=== PATIENT | male | born 1990 | race Caucasian/White ===

== ENCOUNTER 2021-12-26 18:27 | Outpatient (CLI) | payer MEDICAID, OTHER | END 2021-12-26 18:28 | disposition critical access hospital (66) | LOC: EMS 18:27 | DX: R56.9 Unspecified convulsions (principal) | CPT/HCPCS: A0425; A0429 ==

== ENCOUNTER 2021-12-26 18:53 | Emergency (ER) | payer MEDICAID, OTHER ==
--- NOTE | 2021-12-26 19:22 | ED Physician Documentation ---
PD HPI SEIZURE - Stated complaint Stated Complaint: SZ S/P DRUG USE - Chief complaint Chief Complaint: Neuro - History obtained from History obtained from: Patient - History of Present Illness Timing - onset: Other (just prior to arrival) Witnessed: Witnessed - Additional information Additional information: 31-year-old male with history of amphetamine and opiate drug abuse presents by EMS from private residence for suspected seizure-like activity. Patient was at a green party and "smoked some fentanyl". People on scene stated that immediately afterwards the patient appeared to have shaking activity and called 911. When EMS arrived the patient was awake and alert, initially reluctant to be transported because he would be stuck in [place]. Patient denied biting his tongue, urinating on himself, states that he felt completely normal and did not think anything abnormal happened. Patient did report some "heart issue" that he was supposed to follow-up with a specialist for in [place], however he never did. He states that his heart condition caused him to be taken off of methadone but he has no idea what this condition was. He was not able to tell me if this was an electrical problem, valve problem, and infection, structural problem, or anything else about his issue. He states that he feels fine and tells me that he does not want be given Narcan Review of Systems Ten Systems: 10 systems reviewed and negative Constitutional: denies: Fever, Chills, Myalgias Ears: denies: Loss of hearing, Ear pain, Drainage/discharge Cardiac: denies: Chest pain / pressure, Palpitations, Calf pain Respiratory: denies: Dyspnea, Cough, Wheezing Neurologic: reports: Seizure (per EMS). denies: Generalized weakness, Focal weakness PD PAST MEDICAL HISTORY - Past Medical History Past Medical History: Yes - Present Medications Home Medications: Ambulatory Orders Medication Instructions Recorded Confirmed Naloxone HCl Nasal [Narcan Nasal] 4 mg NS ONCE PRN #2 ea 12/26/21 - Allergies Allergies/Adverse Reactions: Allergies Allergy/AdvReac Type Severity Reaction Status Date / Time acetaminophen [From Vicodin] Allergy Unknown Verified 12/26/21 19:05 codeine Allergy Unknown Verified 12/26/21 19:05 hydrocodone [From Vicodin] Allergy Unknown Verified 12/26/21 19:05 morphine AdvReac Unknown Verified 12/26/21 19:05 PD ED PE NORMAL - Vitals Vital signs reviewed: Yes - General General: Alert and oriented X 3, No acute distress, Well developed/nourished - HEENT HEENT: Atraumatic, PERRL, EOMI, Ears normal, Moist mucous membranes - Neck Neck: Supple, no meningeal sign, No bony TTP, C-Spine cleared by NEXUS criteria - Cardiac Cardiac: RRR, No murmur, Strong equal pulses - Respiratory Respiratory: No respiratory distress, Clear bilaterally - Abdomen Abdomen: Soft, Non tender, Non distended - Back Back: No CVA TTP, No spinal TTP - Derm Derm: Normal color, Warm and dry, No rash - Extremities Extremities: No deformity, No tenderness to palpate, Normal ROM s pain - Neuro Neuro: Alert and oriented X 3, machine heel seat laster 2-12 intact, No motor deficit, No sensory deficit, Normal speech - Psych Psych: Normal mood, Normal affect Results - Vitals Vitals: Vital Signs - 24 hr 12/26/21 12/26/21 18:58 20:11 Temperature 37.2 C Heart Rate 92 87 Respiratory 10 L 14 Rate Blood Pressure 129/85 H 132/78 H O2 Saturation 98 97 Oxygen O2 Source Room air - EKG (time done) 1948 Rate: Rate (enter#) (89) Rhythm: NSR [place]: Normal Intervals: Normal [place] QRS: Normal Ischemia: ST elevation c/w repol Other comments: Other comments (QTc normal, QRS normal) - Labs Labs: Laboratory Tests 12/26/21 12/26/21 19:27 19:27 WBC 9.6 RBC 4.08 L Hgb 13.3 L Hct 39.4 L MCV 96.6 H MCH 32.6 H MCHC 33.8 RDW 12.8 Plt Count 292 MPV 9.1 Neut # (Auto) 5.7 Lymph # (Auto) 2.6 [place] # (Auto) 0.7 Eos # (Auto) 0.5 Baso # (Auto) 0.1 Absolute Nucleated RBC 0.00 Nucleated RBC % 0.0 Sodium 140 Potassium 4.3 Chloride 102 Carbon Dioxide 31 Anion Gap 7.0 BUN 26 H Creatinine 0.7 Estimated GFR (MDRD) 132 Glucose 106 H Calcium 9.1 Total Bilirubin 0.4 AST 33 ALT 34 Alkaline Phosphatase 69 Total Protein 6.9 Albumin 3.7 Globulin 3.2 Albumin/Globulin Ratio 1.2 PD MEDICAL DECISION MAKING - ED course ED course: Questionable seizure-like activity after smoking what the patient says was fentanyl. He denies any seizure activity occurred, he states he feels fine and did not notice anything abnormal for him. Patient is mildly intoxicated consistent with opiate use, but arouses easily to voice and answers all questions appropriately, vital signs stable. Since the patient has reported history of unspecified heart issue work-up was obtained, which was unremarkable. EKG showed no electrical abnormalities. CT negative for acute findings. Lab work unremarkable. Patient was counseled on the importance of illicit substance cessation and I highly advise that he follow-up with a top hat body maker as pr eviously recommended. Prescription for Narcan sent to pharmacy. Patient discharged in stable condition. Departure - Departure Disposition: Home, Self Care Clinical Impression: Seizure-like activity, Opiate abuse, episodic Condition: Stable Instructions: ED Drug Abuse Narcotic Sedative Rx Prescriptions: Naloxone HCl Nasal [Narcan Nasal] 4 mg NS ONCE PRN #2 ea PRN Reason: narcotic overdose Comments: You are seen today for possible seizure-like activity. Your work-up today was normal. There is no obvious cause of this activity found. It is possible that this is related to your drug use. I highly recommend that you cease all drug use and follow-up with the top hat body maker for what ever heart condition you were previously diagnosed with. You should follow-up with a neurologist to rule out s eizure disorder. Until that time you should avoid driving, operating heavy machinery, swimming unaccompanied, or doing any activity where sudden loss of consciousness could cause you or other people to be at risk. Your prescription was sent to [facility] in [place] Discharge Date/Time: 12/26/21 20:19
--- OUTSIDE RECORDS SUMMARY | 2021-12-26 19:29 | EXTERNAL MEDICAL SUMMARY RPT | Continuity of Care Document ---
:1990 Author Organization [facility] Address [address] [place] [address] Phone Allergies and Intolerances date description facility type (no date) cefazolin [facility] (unknown) (no date) codeine [facility] (unknown) (no date) hydrocodone [facility] (unknown) (no date) methamphetamine [facility] (unknown) (no date) morphine [facility] (unknown) (no date) shrimp [facility] (unknown) (no date) [facility] (unknown) Encounters No information. Functional Status No information. Immunizations No information. Medications No information. Problems No information. Procedures No information. Results/Labs test date author facility value unit interpret ation Result panel 1 (unknown) (no date) (unknown) (unknown) (no value) (units (un known) unknown) (unknown) (no date) (unknown) (unknown) 12/22/21 (units (unkn own) unknown) (unknown) (no date) (unknown) (unknown) [address]units ([address] n[address]) [address] unknown) (unknown) (no date) (unknown) (unknown) [id number] (units (unkn own) unknown) (unknown) (no date) (unknown) (unknown) Accession (units (unk nown) Number: unknown) [id number] (unknown) (no date) (unknown) (unknown) Age/Sex: 31 / (units (unknown) M Date of unknown) Service: (unknown) (no date) (unknown) (unknown) [place], [place] (units (unknown) [id number] unknown) (unknown) (no date) (unknown) (unknown) Approved by: (units ( unknown) olena Morales) Robert on 12/22/2021 at 13:15 (unknown) (no date) (unknown) (unknown) Bones and (units (unk nown) chest wall: No unknown) suspicious bony lesions. Overlying soft tissues (unknown) (no date) (unknown) (unknown) [facility] , CHEST 2 VIEW, 07/06/2010, 12:38. (unknown) (no date) (unknown) (unknown) : (units (unkn own) 1990 unknown) Acct:[id number] (unknown) (no date) (unknown) (unknown) Dictated by: (units ( unknown) Sissy Zhao unknownYi Jones on 12/22/2021 at 13:14 (unknown) (no date) (unknown) (unknown) FINDINGS: (units (unk nown) unknown) (unknown) (no date) (unknown) (unknown) IMPRESSION: No (units (unknown) acute process. unknown) (unknown) (no date) (unknown) (unknown) INDICATIONS: (units ( unknown) chest pain unknown) (unknown) (no date) (unknown) (unknown) [facility] (unknown) (no date) (unknown) (unknown) Loc: ED (units (unkn own) unknown) (unknown) (no date) (unknown) (unknown) Lungs and (units (unk nown) pleura: Lungs unknown) are clear. No pleural effusions or pneumothorax. (unknown) (no date) (unknown) (unknown) Mediastinum: (units ( unknown) Mediastinal unknown) contours appear normal. Heart size is normal. (unknown) (no date) (unknown) (unknown) Ordering (units (unkn own) Provider: unknown) Rosette Warner D.O. (unknown) (no date) (unknown) (unknown) PROCEDURE: XR (units (unknown) CHEST 1V unknown) (unknown) (no date) (unknown) (unknown) Patient: (units (unkn own) Carissa Murdock unknown) MR#: [id number] (unknown) (no date) (unknown) (unknown) Procedure: XR (units (unknown) chest 1V unknown) (unknown) (no date) (unknown) (unknown) Signed (units (unkn own) unknown) (unknown) (no date) (unknown) (unknown) Surgical (units (unkn own) changes and unknown) devices: None. (unknown) (no date) (unknown) (unknown) TECHNIQUE: One (units (unknown) view of the unknown) chest was acquired. (unknown) (no date) (unknown) (unknown) XRay Report (units (u nknown) unknown) (unknown) (no date) (unknown) (unknown) appear (units (unkn own) unknown) (unknown) (no date) (unknown) (unknown) unremarkable. (units (unknown) unknown) Result panel 2 (unknown) (no (unknown) (unknown) (no value) (units (unk nown) date) unknown) (unknown) (no (unknown) (unknown) (Flovent HFA) (units ( unknown) date) unknown) (unknown) (no (unknown) (unknown) 0.09 mg IH Q4H (units (unknown) date) Qty: 1 3RF unknown) (unknown) (no (unknown) (unknown) 12/22/21 10:59 (units (unknown) date) unknown) (unknown) (no (unknown) (unknown) 12/22/21 13:05 (units (unknown) date) unknown) (unknown) (no (unknown) (unknown) 12/22/21 (units (unkno wn) date) unknown) (unknown) (no (unknown) (unknown) 1 puff INH BIDRT (units (unknown) date) Qty: 1 3RF unknown) (unknown) (no (unknown) (unknown) 1 spray (units (unkno wn) date) Intranasal QDAY unknown) Qty: 1 3RF (unknown) (no (unknown) (unknown) 10:51 (units (unkno wn) date) unknown) (unknown) (no (unknown) (unknown) 1164 (units (unkno wn) date) unknown) (unknown) (no (unknown) (unknown) 40 mg PO QDAY (units ( unknown) date) Qty: 60 1RF unknown) (unknown) (no (unknown) (unknown) Age/Sex: 31 / M (units (unknown) date) unknown) (unknown) (no (unknown) (unknown) Allergies (units (unkn own) date) unknown) (unknown) (no (unknown) (unknown) Allergy/AdvReac (units (unknown) date) Type Severity unknown) Reaction Status Date / Time (unknown) (no (unknown) (unknown) Blood Pressure (units (unknown) date) 118/56 L 12/22/21 unknown) 10:51 (unknown) (no (unknown) (unknown) Blood Pressure (units (unknown) date) 118/56 L unknown) (unknown) (no (unknown) (unknown) Chief Complaint: (units (unknown) date) Chest Pain unknown) (unknown) (no (unknown) (unknown) Complete Blood (units (unknown) date) Count AUTO DIFF unknown) Stat (unknown) (no (unknown) (unknown) Comprehensive (units ( unknown) date) Metabolic Panel unknown) Stat (unknown) (no (unknown) (unknown) Consult to STEM PROCESSING MACHINE OPERATOR - (units (unknown) date) Catalogue Maker unknown) Stat (unknown) (no (unknown) (unknown) Course (units (unkno wn) date) unknown) (unknown) (no (unknown) (unknown) : 1990 (units (unknown) date) Acct:[id number] unknown) (unknown) (no (unknown) (unknown) Date of Service: (units (unknown) date) 12/22/21 unknown) (unknown) (no (unknown) (unknown) Departure (units (unkn own) date) unknown) (unknown) (no (unknown) (unknown) Discharge Plan (units (unknown) date) unknown) (unknown) (no (unknown) (unknown) Discontinued (units (u nknown) date) Medications unknown) (unknown) (no (unknown) (unknown) Documented By: (units (unknown) date) CSD unknown) (unknown) (no (unknown) (unknown) ED Orders (units (unkn own) date) unknown) (unknown) (no (unknown) (unknown) EKG-12 Lead Stat (units (unknown) date) unknown) (unknown) (no (unknown) (unknown) ER Physician: (units ( unknown) date) Rosette Warner D.O. unknown) (unknown) (no (unknown) (unknown) Emergency Report (units (unknown) date) unknown) (unknown) (no (unknown) (unknown) Exam (units (unkno wn) date) unknown) (unknown) (no (unknown) (unknown) Fluticasone (units (un known) date) Propionate unknown) (FLONASE) 1 spray intranasal QDAY ##1 03/02/11 (unknown) (no (unknown) (unknown) Fluticasone (units (un known) date) Propionate unknown) (FLONASE) (unknown) (no (unknown) (unknown) General (units (unkno wn) date) unknown) (unknown) (no (unknown) (unknown) HPI - Chest Pain (units (unknown) date) unknown) (unknown) (no (unknown) (unknown) Initial Vital (units ( unknown) date) Signs unknown) (unknown) (no (unknown) (unknown) Initial Vital (units ( unknown) date) Signs: unknown) (unknown) (no (unknown) (unknown) [facility] (units (unknown) date) [address] unknown) [place] [address] (unknown) (no (unknown) (unknown) Last Admin: (units (un known) date) 12/22/21 13:34 unknown) Dose: 21 mg (unknown) (no (unknown) (unknown) Limitations: no (units (unknown) date) limitations unknown) (unknown) (no (unknown) (unknown) Lipase Stat (units (un known) date) unknown) (unknown) (no (unknown) (unknown) Magnesium Stat (units (unknown) date) unknown) (unknown) (no (unknown) (unknown) Medication (units (unk nown) date) Instructions unknown) Recorded (unknown) (no (unknown) (unknown) Mode of arrival: (units (unknown) date) Ambulatory unknown) (unknown) (no (unknown) (unknown) Nicotine (units (unkno wn) date) (Nicotine 21 Mg unknown) Patch) 21 mg TOP NOW ONE (unknown) (no (unknown) (unknown) No Action (units (unkn own) date) unknown) (unknown) (no (unknown) (unknown) Ordered: (units (unkno wn) date) unknown) (unknown) (no (unknown) (unknown) Orders (units (unkno wn) date) unknown) (unknown) (no (unknown) (unknown) Oxygen Delivery (units (unknown) date) Method 12/22/21 unknown) 10:51 (unknown) (no (unknown) (unknown) Oxygen Delivery (units (unknown) date) Method Room Air unknown) (unknown) (no (unknown) (unknown) Patient History (units (unknown) date) unknown) (unknown) (no (unknown) (unknown) Patient: (units (unkno wn) date) Carissa Murdock MR#: unknown) [id number] (unknown) (no (unknown) (unknown) Prescriptions: (units (unknown) date) unknown) (unknown) (no (unknown) (unknown) Previous Rx's (units ( unknown) date) unknown) (unknown) (no (unknown) (unknown) Pulse Oximetry 98 (units (unknown) date) 12/22/21 10:51 unknown) (unknown) (no (unknown) (unknown) Pulse Oximetry 98 (units (unknown) date) unknown) (unknown) (no (unknown) (unknown) Pulse Rate 85 (units ( unknown) date) 12/22/21 10:51 unknown) (unknown) (no (unknown) (unknown) Pulse Rate 85 (units ( unknown) date) unknown) (unknown) (no (unknown) (unknown) ROS Unobtainable: (units (unknown) date) All systems unknown) reviewed + are unremarkable except as noted in HPI (unknown) (no (unknown) (unknown) Related Data (units (u nknown) date) unknown) (unknown) (no (unknown) (unknown) Respiratory Rate (units (unknown) date) 20 12/22/21 10:51 unknown) (unknown) (no (unknown) (unknown) Respiratory Rate (units (unknown) date) 20 unknown) (unknown) (no (unknown) (unknown) Review of Systems (units (unknown) date) unknown) (unknown) (no (unknown) (unknown) Signed By: (units (unk nown) date) unknown) (unknown) (no (unknown) (unknown) Smoking Status: (units (unknown) date) Current every day unknown) smoker (unknown) (no (unknown) (unknown) Social History (units (unknown) date) (Reviewed 12/22/21 unknown) @ 14:55 by Rosette Warner DO) (unknown) (no (unknown) (unknown) Source: patient (units (unknown) date) unknown) (unknown) (no (unknown) (unknown) Stated Complaint: (units (unknown) date) L Foot unknown) pain/swelling. Chest pain (unknown) (no (unknown) (unknown) Stop: 12/22/21 (units (unknown) date) 13:07 unknown) (unknown) (no (unknown) (unknown) Substance Use (units ( unknown) date) Type: opiates unknown) (unknown) (no (unknown) (unknown) Temperature 98.1 (units (unknown) date) F 12/22/21 10:51 unknown) (unknown) (no (unknown) (unknown) Temperature 98.1 (units (unknown) date) F unknown) (unknown) (no (unknown) (unknown) Time Seen by (units (u nknown) date) Provider: 12/22/21 unknown) 13:41 (unknown) (no (unknown) (unknown) Troponin + CK (units ( unknown) date) Cardiac Panel Stat unknown) (unknown) (no (unknown) (unknown) Vital Signs - 8 (units (unknown) date) hr unknown) (unknown) (no (unknown) (unknown) Vital Signs (units (un known) date) unknown) (unknown) (no (unknown) (unknown) Vital signs: (units (u nknown) date) unknown) (unknown) (no (unknown) (unknown) XR chest 1V Stat (units (unknown) date) unknown) (unknown) (no (unknown) (unknown) aerosol inhaler (units (unknown) date) (Ventolin HFA) unknown) (unknown) (no (unknown) (unknown) albuterol sulfate (units (unknown) date) 90 mcg/actuation unknown) 0.09 mg IH Q4H ##1 08/24/11 (unknown) (no (unknown) (unknown) albuterol sulfate (units (unknown) date) [Ventolin HFA] 90 unknown) MCG/PUFF HFA aerosol inhaler (unknown) (no (unknown) (unknown) and below (units (unkn own) date) unknown) (unknown) (no (unknown) (unknown) cefazolin [From (units (unknown) date) Ancef] Allergy unknown) Hives Verified 12/22/21 13:21 (unknown) (no (unknown) (unknown) citalopram 20 mg (units (unknown) date) tablet (Celexa) 40 unknown) mg PO QDAY ##60 03/16/11 (unknown) (no (unknown) (unknown) citalopram (units (unk nown) date) [Celexa] 20 MG unknown) tablet (unknown) (no (unknown) (unknown) codeine Allergy (units (unknown) date) Rash Verified unknown) 12/22/21 13:27 (unknown) (no (unknown) (unknown) fluticasone (units (un known) date) propionate 110 1 unknown) puff INH BIDRT ##1 03/02/11 (unknown) (no (unknown) (unknown) fluticasone (units (un known) date) propionate unknown) [Flovent HFA] 12 GM HFA aerosol inhaler (unknown) (no (unknown) (unknown) hydrocodone (units (un known) date) AdvReac Vomiting unknown) Verified 12/22/21 13:27 (unknown) (no (unknown) (unknown) mcg/actuation HFA (units (unknown) date) aerosol inhaler unknown) (unknown) (no (unknown) (unknown) methamphetamine (units (unknown) date) Allergy Verified unknown) 12/22/21 13:27 (unknown) (no (unknown) (unknown) morphine Allergy (units (unknown) date) Hallucinati unknown) Verified 12/22/21 13:27 (unknown) (no (unknown) (unknown) ng (units (unkno wn) date) unknown) (unknown) (no (unknown) (unknown) shrimp Allergy (units (unknown) date) Hives Verified unknown) 12/22/21 13:27 (unknown) (no (unknown) (unknown) tobacco type: (units ( unknown) date) cigarettes unknown) (unknown) (no (unknown) (unknown) walnut Allergy (units (unknown) date) Verified 12/22/21 unknown) 13:27 Result panel 3 (unknown) (no (unknown) (unknown) (no value) (units (unk nown) date) unknown) (unknown) (no (unknown) (unknown) (Flovent HFA) (units ( unknown) date) unknown) (unknown) (no (unknown) (unknown) 0.09 mg IH Q4H (units (unknown) date) Qty: 1 3RF unknown) (unknown) (no (unknown) (unknown) 12/22/21 10:59 (units (unknown) date) unknown) (unknown) (no (unknown) (unknown) 12/22/21 13:05 (units (unknown) date) unknown) (unknown) (no (unknown) (unknown) 12/22/21 (units (unkno wn) date) unknown) (unknown) (no (unknown) (unknown) 1 puff INH BIDRT (units (unknown) date) Qty: 1 3RF unknown) (unknown) (no (unknown) (unknown) 1 spray (units (unkno wn) date) Intranasal QDAY unknown) Qty: 1 3RF (unknown) (no (unknown) (unknown) 10:51 (units (unkno wn) date) unknown) (unknown) (no (unknown) (unknown) 1164 (units (unkno wn) date) unknown) (unknown) (no (unknown) (unknown) 40 mg PO QDAY (units ( unknown) date) Qty: 60 1RF unknown) (unknown) (no (unknown) (unknown) Age/Sex: 31 / M (units (unknown) date) unknown) (unknown) (no (unknown) (unknown) Allergies (units (unkn own) date) unknown) (unknown) (no (unknown) (unknown) Allergy/AdvReac (units (unknown) date) Type Severity unknown) Reaction Status Date / Time (unknown) (no (unknown) (unknown) Blood Pressure (units (unknown) date) 118/56 L 12/22/21 unknown) 10:51 (unknown) (no (unknown) (unknown) Blood Pressure (units (unknown) date) 118/56 L unknown) (unknown) (no (unknown) (unknown) Chief Complaint: (units (unknown) date) Chest Pain unknown) (unknown) (no (unknown) (unknown) Complete Blood (units (unknown) date) Count AUTO DIFF unknown) Stat (unknown) (no (unknown) (unknown) Comprehensive (units ( unknown) date) Metabolic Panel unknown) Stat (unknown) (no (unknown) (unknown) Consult to STEM PROCESSING MACHINE OPERATOR - (units (unknown) date) Catalogue Maker unknown) Stat (unknown) (no (unknown) (unknown) Course (units (unkno wn) date) unknown) (unknown) (no (unknown) (unknown) : 1990 (units (unknown) date) Acct:[id number] unknown) (unknown) (no (unknown) (unknown) Date of Service: (units (unknown) date) 12/22/21 unknown) (unknown) (no (unknown) (unknown) Departure (units (unkn own) date) unknown) (unknown) (no (unknown) (unknown) Discharge Plan (units (unknown) date) unknown) (unknown) (no (unknown) (unknown) Discontinued (units (u nknown) date) Medications unknown) (unknown) (no (unknown) (unknown) Documented By: (units (unknown) date) CSD unknown) (unknown) (no (unknown) (unknown) ED Orders (units (unkn own) date) unknown) (unknown) (no (unknown) (unknown) EKG-12 Lead Stat (units (unknown) date) unknown) (unknown) (no (unknown) (unknown) ER Physician: (units ( unknown) date) Rosette Warner D.O. unknown) (unknown) (no (unknown) (unknown) Emergency Report (units (unknown) date) unknown) (unknown) (no (unknown) (unknown) Exam (units (unkno wn) date) unknown) (unknown) (no (unknown) (unknown) Fluticasone (units (un known) date) Propionate unknown) (FLONASE) 1 spray intranasal QDAY ##1 03/02/11 (unknown) (no (unknown) (unknown) Fluticasone (units (un known) date) Propionate unknown) (FLONASE) (unknown) (no (unknown) (unknown) General (units (unkno wn) date) unknown) (unknown) (no (unknown) (unknown) HPI - Chest Pain (units (unknown) date) unknown) (unknown) (no (unknown) (unknown) Initial Vital (units ( unknown) date) Signs unknown) (unknown) (no (unknown) (unknown) Initial Vital (units ( unknown) date) Signs: unknown) (unknown) (no (unknown) (unknown) [facility] (units (unknown) date) [address] unknown) [place] [id number] (unknown) (no (unknown) (unknown) Last Admin: (units (un known) date) 12/22/21 13:34 unknown) Dose: 21 mg (unknown) (no (unknown) (unknown) Limitations: no (units (unknown) date) limitations unknown) (unknown) (no (unknown) (unknown) Lipase Stat (units (un known) date) unknown) (unknown) (no (unknown) (unknown) Magnesium Stat (units (unknown) date) unknown) (unknown) (no (unknown) (unknown) Medication (units (unk nown) date) Instructions unknown) Recorded (unknown) (no (unknown) (unknown) Mode of arrival: (units (unknown) date) Ambulatory unknown) (unknown) (no (unknown) (unknown) Nicotine (units (unkno wn) date) (Nicotine 21 Mg unknown) Patch) 21 mg TOP NOW ONE (unknown) (no (unknown) (unknown) No Action (units (unkn own) date) unknown) (unknown) (no (unknown) (unknown) Ordered: (units (unkno wn) date) unknown) (unknown) (no (unknown) (unknown) Orders (units (unkno wn) date) unknown) (unknown) (no (unknown) (unknown) Oxygen Delivery (units (unknown) date) Method 12/22/21 unknown) 10:51 (unknown) (no (unknown) (unknown) Oxygen Delivery (units (unknown) date) Method Room Air unknown) (unknown) (no (unknown) (unknown) Patient History (units (unknown) date) unknown) (unknown) (no (unknown) (unknown) Patient: (units (unkno wn) date) Carissa Murdock MR#: unknown) [id number] (unknown) (no (unknown) (unknown) Prescriptions: (units (unknown) date) unknown) (unknown) (no (unknown) (unknown) Previous Rx's (units ( unknown) date) unknown) (unknown) (no (unknown) (unknown) Pulse Oximetry 98 (units (unknown) date) 12/22/21 10:51 unknown) (unknown) (no (unknown) (unknown) Pulse Oximetry 98 (units (unknown) date) unknown) (unknown) (no (unknown) (unknown) Pulse Rate 85 (units ( unknown) date) 12/22/21 10:51 unknown) (unknown) (no (unknown) (unknown) Pulse Rate 85 (units ( unknown) date) unknown) (unknown) (no (unknown) (unknown) ROS Unobtainable: (units (unknown) date) All systems unknown) reviewed + are unremarkable except as noted in HPI (unknown) (no (unknown) (unknown) Related Data (units (u nknown) date) unknown) (unknown) (no (unknown) (unknown) Respiratory Rate (units (unknown) date) 20 12/22/21 10:51 unknown) (unknown) (no (unknown) (unknown) Respiratory Rate (units (unknown) date) 20 unknown) (unknown) (no (unknown) (unknown) Review of Systems (units (unknown) date) unknown) (unknown) (no (unknown) (unknown) Signed By: (units (unk nown) date) unknown) (unknown) (no (unknown) (unknown) Smoking Status: (units (unknown) date) Current every day unknown) smoker (unknown) (no (unknown) (unknown) Social History (units (unknown) date) (Reviewed 12/22/21 unknown) @ 14:55 by Rosette Warner DO) (unknown) (no (unknown) (unknown) Source: patient (units (unknown) date) unknown) (unknown) (no (unknown) (unknown) Stated Complaint: (units (unknown) date) L Foot unknown) pain/swelling. Chest pain (unknown) (no (unknown) (unknown) Stop: 12/22/21 (units (unknown) date) 13:07 unknown) (unknown) (no (unknown) (unknown) Substance Use (units ( unknown) date) Type: opiates unknown) (unknown) (no (unknown) (unknown) Temperature 98.1 (units (unknown) date) F 12/22/21 10:51 unknown) (unknown) (no (unknown) (unknown) Temperature 98.1 (units (unknown) date) F unknown) (unknown) (no (unknown) (unknown) Time Seen by (units (u nknown) date) Provider: 12/22/21 unknown) 13:41 (unknown) (no (unknown) (unknown) Troponin + CK (units ( unknown) date) Cardiac Panel Stat unknown) (unknown) (no (unknown) (unknown) Vital Signs - 8 (units (unknown) date) hr unknown) (unknown) (no (unknown) (unknown) Vital Signs (units (un known) date) unknown) (unknown) (no (unknown) (unknown) Vital signs: (units (u nknown) date) unknown) (unknown) (no (unknown) (unknown) XR chest 1V Stat (units (unknown) date) unknown) (unknown) (no (unknown) (unknown) aerosol inhaler (units (unknown) date) (Ventolin HFA) unknown) (unknown) (no (unknown) (unknown) albuterol sulfate (units (unknown) date) 90 mcg/actuation unknown) 0.09 mg IH Q4H ##1 08/24/11 (unknown) (no (unknown) (unknown) albuterol sulfate (units (unknown) date) [Ventolin HFA] 90 unknown) MCG/PUFF HFA aerosol inhaler (unknown) (no (unknown) (unknown) and below (units (unkn own) date) unknown) (unknown) (no (unknown) (unknown) cefazolin [From (units (unknown) date) Ancef] Allergy unknown) Hives Verified 12/22/21 13:21 (unknown) (no (unknown) (unknown) citalopram 20 mg (units (unknown) date) tablet (Celexa) 40 unknown) mg PO QDAY ##60 03/16/11 (unknown) (no (unknown) (unknown) citalopram (units (unk nown) date) [Celexa] 20 MG unknown) tablet (unknown) (no (unknown) (unknown) codeine Allergy (units (unknown) date) Rash Verified unknown) 12/22/21 13:27 (unknown) (no (unknown) (unknown) fluticasone (units (un known) date) propionate 110 1 unknown) puff INH BIDRT ##1 03/02/11 (unknown) (no (unknown) (unknown) fluticasone (units (un known) date) propionate unknown) [Flovent HFA] 12 GM HFA aerosol inhaler (unknown) (no (unknown) (unknown) hydrocodone (units (un known) date) AdvReac Vomiting unknown) Verified 12/22/21 13:27 (unknown) (no (unknown) (unknown) mcg/actuation HFA (units (unknown) date) aerosol inhaler unknown) (unknown) (no (unknown) (unknown) methamphetamine (units (unknown) date) Allergy Verified unknown) 12/22/21 13:27 (unknown) (no (unknown) (unknown) morphine Allergy (units (unknown) date) Hallucinati unknown) Verified 12/22/21 13:27 (unknown) (no (unknown) (unknown) ng (units (unkno wn) date) unknown) (unknown) (no (unknown) (unknown) shrimp Allergy (units (unknown) date) Hives Verified unknown) 12/22/21 13:27 (unknown) (no (unknown) (unknown) tobacco type: (units ( unknown) date) cigarettes unknown) (unknown) (no (unknown) (unknown) walnut Allergy (units (unknown) date) Verified 12/22/21 unknown) 13:27 Result panel 4 (unknown) (no date) (unknown) (unknown) (no value) (units (un known) unknown) (unknown) (no date) (unknown) (unknown) 12/22/21 (units (unkn own) unknown) (unknown) (no date) (unknown) (unknown) [address] (units (unk nown) Street unknown) (unknown) (no date) (unknown) (unknown) [id number] (units (unkn own) unknown) (unknown) (no date) (unknown) (unknown) Accession (units (unk nown) Number: unknown) [id number] (unknown) (no date) (unknown) (unknown) Age/Sex: 31 / (units (unknown) M Date of unknown) Service: (unknown) (no date) (unknown) (unknown) [place], [place] (units (unknown) [address] unknown) (unknown) (no date) (unknown) (unknown) Approved by: (units ( unknown) olena Friend) Robert on 12/22/2021 at 16:42 (unknown) (no date) (unknown) (unknown) Bones: No (units (unk nown) fractures or unknown) dislocations. No suspicious bony lesions. (unknown) (no date) (unknown) (unknown) COMPARISON: (units (u nknown) None. unknown) (unknown) (no date) (unknown) (unknown) : (units (unkn own) 1990 unknown) Acct:[id number] (unknown) (no date) (unknown) (unknown) Dictated by: (units ( unknown) Linda Gaspar unknownYi Jones on 12/22/2021 at 16:41 (unknown) (no date) (unknown) (unknown) FINDINGS: (units (unk nown) unknown) (unknown) (no date) (unknown) (unknown) IMPRESSION: (units (u nknown) Intact left unknown) foot. (unknown) (no date) (unknown) (unknown) INDICATIONS: (units ( unknown) infection foot unknown) (unknown) (no date) (unknown) (unknown) [facility] (unknown) (no date) (unknown) (unknown) Loc: ED (units (unkn own) unknown) (unknown) (no date) (unknown) (unknown) Ordering (units (unkn own) Provider: unknown) Rosette Warner D.O. (unknown) (no date) (unknown) (unknown) PROCEDURE: XR (units (unknown) FOOT LT MIN 3V unknown) (unknown) (no date) (unknown) (unknown) Patient: (units (unkn own) Carissa Murdock unknown) MR#: [id number] (unknown) (no date) (unknown) (unknown) Procedure: XR (units (unknown) foot LT min 3V unknown) (unknown) (no date) (unknown) (unknown) Signed (units (unkn own) unknown) (unknown) (no date) (unknown) (unknown) Soft tissues: (units (unknown) No tibiotalar unknown) joint effusion. Achilles tendon appears normal. (unknown) (no date) (unknown) (unknown) TECHNIQUE: (units (un known) Three views of unknown) the foot were acquired. (unknown) (no date) (unknown) (unknown) There is (units (unkn own) unknown) (unknown) (no date) (unknown) (unknown) XRay Report (units (u nknown) unknown) (unknown) (no date) (unknown) (unknown) no radiodense (units (unknown) foreign body or unknown) suspicious soft tissue gas. Result panel 5 (unknown) (no (unknown) (unknown) (no value) (units (unk nown) date) unknown) (unknown) (no (unknown) (unknown) (Flovent HFA) (units ( unknown) date) unknown) (unknown) (no (unknown) (unknown) 0 /ul (unkno wn) date) (unknown) (no (unknown) (unknown) 0.09 mg IH Q4H (units (unknown) date) Qty: 1 3RF unknown) (unknown) (no (unknown) (unknown) 0.7 % (unkno wn) date) (unknown) (no (unknown) (unknown) 12/22/21 10:59 (units (unknown) date) unknown) (unknown) (no (unknown) (unknown) 12/22/21 13:05 (units (unknown) date) unknown) (unknown) (no (unknown) (unknown) 12/22/21 15:49 (units (unknown) date) unknown) (unknown) (no (unknown) (unknown) 12/22/21 15:50 (units (unknown) date) unknown) (unknown) (no (unknown) (unknown) 12/22/21 16:50 (units (unknown) date) unknown) (unknown) (no (unknown) (unknown) 12/22/21 (units (unkno wn) date) unknown) (unknown) (no (unknown) (unknown) 1 puff INH BIDRT (units (unknown) date) Qty: 1 3RF unknown) (unknown) (no (unknown) (unknown) 1 spray (units (unkno wn) date) Intranasal QDAY unknown) Qty: 1 3RF (unknown) (no (unknown) (unknown) 10:51 12/22/21 (units (unknown) date) unknown) (unknown) (no (unknown) (unknown) 1164 (units (unkno wn) date) unknown) (unknown) (no (unknown) (unknown) 12.6 g/dl (unkno wn) date) (unknown) (no (unknown) (unknown) 13.3 % (unkno wn) date) (unknown) (no (unknown) (unknown) 13:22 12/22/21 (units (unknown) date) unknown) (unknown) (no (unknown) (unknown) 13:30 12/22/21 (units (unknown) date) unknown) (unknown) (no (unknown) (unknown) 13:30 (units (unkno wn) date) unknown) (unknown) (no (unknown) (unknown) 14:00 12/22/21 (units (unknown) date) unknown) (unknown) (no (unknown) (unknown) 14:01 12/22/21 (units (unknown) date) unknown) (unknown) (no (unknown) (unknown) 14:01 (units (unkno wn) date) unknown) (unknown) (no (unknown) (unknown) 14:30 12/22/21 (units (unknown) date) unknown) (unknown) (no (unknown) (unknown) 15:00 12/22/21 (units (unknown) date) unknown) (unknown) (no (unknown) (unknown) 15:00 (units (unkno wn) date) unknown) (unknown) (no (unknown) (unknown) 16:38 (units (unkno wn) date) unknown) (unknown) (no (unknown) (unknown) 247 x10 3/ul (unkno wn) date) (unknown) (no (unknown) (unknown) 2600 /ul (unkno wn) date) (unknown) (no (unknown) (unknown) 3.86 x10 6/ul (unkno wn) date) (unknown) (no (unknown) (unknown) 300 /ul (unkno wn) date) (unknown) (no (unknown) (unknown) 32.7 pg (unkno wn) date) (unknown) (no (unknown) (unknown) 3200 /ul (unkno wn) date) (unknown) (no (unknown) (unknown) 34.6 % (unkno wn) date) (unknown) (no (unknown) (unknown) 36.5 % (unkno wn) date) (unknown) (no (unknown) (unknown) 39.2 % (unkno wn) date) (unknown) (no (unknown) (unknown) 4.1 % (unkno wn) date) (unknown) (no (unknown) (unknown) 40 mg PO QDAY (units ( unknown) date) Qty: 60 1RF unknown) (unknown) (no (unknown) (unknown) 48.2 % (unkno wn) date) (unknown) (no (unknown) (unknown) 500 /ul (unkno wn) date) (unknown) (no (unknown) (unknown) 6.5 x10 3/ul (unkno wn) date) (unknown) (no (unknown) (unknown) 7.8 % (unkno wn) date) (unknown) (no (unknown) (unknown) 94.5 fl (unkno wn) date) (unknown) (no (unknown) (unknown) Age/Sex: 31 / M (units (unknown) date) unknown) (unknown) (no (unknown) (unknown) Allergies (units (unkn own) date) unknown) (unknown) (no (unknown) (unknown) Allergy/AdvReac (units (unknown) date) Type Severity unknown) Reaction Status Date / Time (unknown) (no (unknown) (unknown) Blood Culture (units ( unknown) date) Stat unknown) (unknown) (no (unknown) (unknown) Blood Pressure (units (unknown) date) 117/61 unknown) (unknown) (no (unknown) (unknown) Blood Pressure (units (unknown) date) 118/56 L 12/22/21 unknown) 10:51 (unknown) (no (unknown) (unknown) Blood Pressure (units (unknown) date) 118/56 L 119/68 unknown) (unknown) (no (unknown) (unknown) Blood Pressure (units (unknown) date) 124/56 L unknown) (unknown) (no (unknown) (unknown) Blood Pressure (units (unknown) date) unknown) (unknown) (no (unknown) (unknown) CBC Auto Diff (units ( unknown) date) [Complete Blood unknown) Count AUTO DIFF] Stat (unknown) (no (unknown) (unknown) CMP (units (unkno wn) date) [Comprehensive unknown) Metabolic Panel] Stat (unknown) (no (unknown) (unknown) CRP [C-Reactive (units (unknown) date) Protein Quant] unknown) Stat (unknown) (no (unknown) (unknown) Chief Complaint: (units (unknown) date) Chest Pain unknown) (unknown) (no (unknown) (unknown) Consult to STEM PROCESSING MACHINE OPERATOR - (units (unknown) date) Catalogue Maker unknown) Stat (unknown) (no (unknown) (unknown) Course (units (unkno wn) date) unknown) (unknown) (no (unknown) (unknown) : 1990 (units (unknown) date) Acct:[id number] unknown) (unknown) (no (unknown) (unknown) Date of Service: (units (unknown) date) 12/22/21 unknown) (unknown) (no (unknown) (unknown) Departure (units (unkn own) date) unknown) (unknown) (no (unknown) (unknown) Discharge Plan (units (unknown) date) unknown) (unknown) (no (unknown) (unknown) Discontinued (units (u nknown) date) Medications unknown) (unknown) (no (unknown) (unknown) Documented By: (units (unknown) date) CSD unknown) (unknown) (no (unknown) (unknown) ED Orders (units (unkn own) date) unknown) (unknown) (no (unknown) (unknown) EKG-12 Lead Stat (units (unknown) date) unknown) (unknown) (no (unknown) (unknown) ER Physician: (units ( unknown) date) Rosette Warner D.O. unknown) (unknown) (no (unknown) (unknown) ESR [Erythrocyte (units (unknown) date) Sedimentation unknown) Rate] Stat (unknown) (no (unknown) (unknown) Emergency Report (units (unknown) date) unknown) (unknown) (no (unknown) (unknown) Exam (units (unkno wn) date) unknown) (unknown) (no (unknown) (unknown) Fluticasone (units (un known) date) Propionate unknown) (FLONASE) 1 spray intranasal QDAY ##1 03/02/11 (unknown) (no (unknown) (unknown) Fluticasone (units (un known) date) Propionate unknown) (FLONASE) (unknown) (no (unknown) (unknown) General (units (unkno wn) date) unknown) (unknown) (no (unknown) (unknown) HPI - Chest Pain (units (unknown) date) unknown) (unknown) (no (unknown) (unknown) HPI narrative: (units (unknown) date) unknown) (unknown) (no (unknown) (unknown) History of (units (unk nown) date) Present Illness unknown) (unknown) (no (unknown) (unknown) Imaging Data (units (u nknown) date) unknown) (unknown) (no (unknown) (unknown) Initial Vital (units ( unknown) date) Signs unknown) (unknown) (no (unknown) (unknown) Initial Vital (units ( unknown) date) Signs: unknown) (unknown) (no (unknown) (unknown) [facility] (units (unknown) date) [address] unknown) [place] [address] (unknown) (no (unknown) (unknown) Lactate (Lactic (units (unknown) date) Acid) Stat unknown) (unknown) (no (unknown) (unknown) Last Admin: (units (un known) date) 12/22/21 13:34 unknown) Dose: 21 mg (unknown) (no (unknown) (unknown) Last Admin: (units (un known) date) 12/22/21 15:16 unknown) Dose: 1,000 mls/hr (unknown) (no (unknown) (unknown) Limitations: no (units (unknown) date) limitations unknown) (unknown) (no (unknown) (unknown) Lipase Stat (units (un known) date) unknown) (unknown) (no (unknown) (unknown) MAG [Magnesium] (units (unknown) date) Stat unknown) (unknown) (no (unknown) (unknown) MDM - Chest Pain (units (unknown) date) unknown) (unknown) (no (unknown) (unknown) Medical Advice or (units (unknown) date) was discharged but unknown) states there was no plan in place. We are (unknown) (no (unknown) (unknown) Medication (units (unk nown) date) Instructions unknown) Recorded (unknown) (no (unknown) (unknown) Mode of arrival: (units (unknown) date) Ambulatory unknown) (unknown) (no (unknown) (unknown) Nicotine (units (unkno wn) date) (Nicotine 21 Mg unknown) Patch) 21 mg TOP NOW ONE (unknown) (no (unknown) (unknown) No Action (units (unkn own) date) unknown) (unknown) (no (unknown) (unknown) No signs of (units (un known) date) osteomyelitis but unknown) linear edema in the posterior process of the (unknown) (no (unknown) (unknown) ONE (units (unkno wn) date) unknown) (unknown) (no (unknown) (unknown) Ordered: (units (unkno wn) date) unknown) (unknown) (no (unknown) (unknown) Orders (units (unkno wn) date) unknown) (unknown) (no (unknown) (unknown) Oxygen Delivery (units (unknown) date) Method 12/22/21 unknown) 10:51 (unknown) (no (unknown) (unknown) Oxygen Delivery (units (unknown) date) Method Room Air unknown) (unknown) (no (unknown) (unknown) Oxygen Delivery (units (unknown) date) Method unknown) (unknown) (no (unknown) (unknown) Patient History (units (unknown) date) unknown) (unknown) (no (unknown) (unknown) Patient: (units (unkno wn) date) Carissa Murdock MR#: unknown) [id number] (unknown) (no (unknown) (unknown) Prescriptions: (units (unknown) date) unknown) (unknown) (no (unknown) (unknown) Previous Rx's (units ( unknown) date) unknown) (unknown) (no (unknown) (unknown) Procalcitonin (units ( unknown) date) Stat unknown) (unknown) (no (unknown) (unknown) Pulse Oximetry 98 (units (unknown) date) 12/22/21 10:51 unknown) (unknown) (no (unknown) (unknown) Pulse Oximetry 98 (units (unknown) date) 98 unknown) (unknown) (no (unknown) (unknown) Pulse Oximetry 98 (units (unknown) date) 99 unknown) (unknown) (no (unknown) (unknown) Pulse Oximetry 99 (units (unknown) date) 100 unknown) (unknown) (no (unknown) (unknown) Pulse Oximetry 99 (units (unknown) date) unknown) (unknown) (no (unknown) (unknown) Pulse Rate 81 82 (units (unknown) date) unknown) (unknown) (no (unknown) (unknown) Pulse Rate 85 (units ( unknown) date) 12/22/21 10:51 unknown) (unknown) (no (unknown) (unknown) Pulse Rate 85 80 (units (unknown) date) unknown) (unknown) (no (unknown) (unknown) Pulse Rate 86 86 (units (unknown) date) unknown) (unknown) (no (unknown) (unknown) Pulse Rate 90 97 (units (unknown) date) H unknown) (unknown) (no (unknown) (unknown) ROS Unobtainable: (units (unknown) date) All systems unknown) reviewed + are unremarkable except as noted in HPI (unknown) (no (unknown) (unknown) Radiologist's (units ( unknown) date) Impression: unknown) (unknown) (no (unknown) (unknown) Related Data (units (u nknown) date) unknown) (unknown) (no (unknown) (unknown) Respiratory Rate (units (unknown) date) 18 unknown) (unknown) (no (unknown) (unknown) Respiratory Rate (units (unknown) date) 20 12/22/21 10:51 unknown) (unknown) (no (unknown) (unknown) Respiratory Rate (units (unknown) date) 20 unknown) (unknown) (no (unknown) (unknown) Respiratory Rate (units (unknown) date) 24 18 unknown) (unknown) (no (unknown) (unknown) Respiratory Rate (units (unknown) date) 27 H 27 H unknown) (unknown) (no (unknown) (unknown) Review of Systems (units (unknown) date) unknown) (unknown) (no (unknown) (unknown) Signed By: (units (unk nown) date) unknown) (unknown) (no (unknown) (unknown) Smoking Status: (units (unknown) date) Current every day unknown) smoker (unknown) (no (unknown) (unknown) Social History (units (unknown) date) (Reviewed 12/22/21 unknown) @ 14:55 by Rosette Warner DO) (unknown) (no (unknown) (unknown) Sodium Chloride (units (unknown) date) (Normal Saline unknown) 0.9%) 1,000 mls @ 1,000 mls/hr IV BOLUS ONE (unknown) (no (unknown) (unknown) Source: patient (units (unknown) date) unknown) (unknown) (no (unknown) (unknown) Stated Complaint: (units (unknown) date) L Foot unknown) pain/swelling. Chest pain (unknown) (no (unknown) (unknown) Stop: 12/22/21 (units (unknown) date) 13:07 unknown) (unknown) (no (unknown) (unknown) Stop: 12/22/21 (units (unknown) date) 16:14 unknown) (unknown) (no (unknown) (unknown) Stop: 12/22/21 (units (unknown) date) 17:18 unknown) (unknown) (no (unknown) (unknown) Substance Use (units ( unknown) date) Type: opiates unknown) (unknown) (no (unknown) (unknown) Temperature 98.1 (units (unknown) date) F 12/22/21 10:51 unknown) (unknown) (no (unknown) (unknown) Temperature 98.1 (units (unknown) date) F unknown) (unknown) (no (unknown) (unknown) Temperature (units (un known) date) unknown) (unknown) (no (unknown) (unknown) This is a (units (unkn own) date) 31-year-old male unknown) with history of IV drug abuse, prior endocarditis, (unknown) (no (unknown) (unknown) Time Seen by (units (u nknown) date) Provider: 12/22/21 unknown) 13:41 (unknown) (no (unknown) (unknown) Vancomycin (units (unk nown) date) HCl/Dextrose unknown) (Vancomycin) 1,500 mg in 300 mls @ 200 mls/hr IV NOW (unknown) (no (unknown) (unknown) Vital Signs - 8 (units (unknown) date) hr unknown) (unknown) (no (unknown) (unknown) Vital Signs (units (un known) date) unknown) (unknown) (no (unknown) (unknown) Vital signs: (units (u nknown) date) unknown) (unknown) (no (unknown) (unknown) XR chest 1V Stat (units (unknown) date) unknown) (unknown) (no (unknown) (unknown) XR foot LT min 3V (units (unknown) date) Stat unknown) (unknown) (no (unknown) (unknown) able to obtain (units (unknown) date) records patient unknown) was had an MRI that shows no features of (unknown) (no (unknown) (unknown) abscess in the (units (unknown) date) superficial soft unknown) tissues and small joint effusion at the great (unknown) (no (unknown) (unknown) aerosol inhaler (units (unknown) date) (Ventolin HFA) unknown) (unknown) (no (unknown) (unknown) albuterol sulfate (units (unknown) date) 90 mcg/actuation unknown) 0.09 mg IH Q4H ##1 08/24/11 (unknown) (no (unknown) (unknown) albuterol sulfate (units (unknown) date) [Ventolin HFA] 90 unknown) MCG/PUFF HFA aerosol inhaler (unknown) (no (unknown) (unknown) and below (units (unkn own) date) unknown) (unknown) (no (unknown) (unknown) calcaneus near (units (unknown) date) the lateral wall unknown) of the calcaneus and a subtle sclerotic line (unknown) (no (unknown) (unknown) cefazolin [From (units (unknown) date) Ancef] Allergy unknown) Hives Verified 12/22/21 13:21 (unknown) (no (unknown) (unknown) citalopram 20 mg (units (unknown) date) tablet (Celexa) 40 unknown) mg PO QDAY ##60 03/16/11 (unknown) (no (unknown) (unknown) citalopram (units (unk nown) date) [Celexa] 20 MG unknown) tablet (unknown) (no (unknown) (unknown) codeine Allergy (units (unknown) date) Rash Verified unknown) 12/22/21 13:27 (unknown) (no (unknown) (unknown) consistent with a (units (unknown) date) small stress unknown) fracture in the calcaneus the fracture line is (unknown) (no (unknown) (unknown) deltoid ligament (units (unknown) date) and ATFL and CFL.? unknown) There is also increased fluid at the (unknown) (no (unknown) (unknown) enhancing fluid (units (unknown) date) collection along unknown) the plantar aspect of the 2nd metatarsal in the (unknown) (no (unknown) (unknown) fluticasone (units (un known) date) propionate 110 1 unknown) puff INH BIDRT ##1 03/02/11 (unknown) (no (unknown) (unknown) fluticasone (units (un known) date) propionate unknown) [Flovent HFA] 12 GM HFA aerosol inhaler (unknown) (no (unknown) (unknown) hepatitis-C, (units (u nknown) date) asthma and bipolar unknown) disorder. Patient states he had an injury to (unknown) (no (unknown) (unknown) his left foot at (units (unknown) date) some time unclear unknown) about the timing. He was at [place] he (unknown) (no (unknown) (unknown) hydrocodone (units (un known) date) AdvReac Vomiting unknown) Verified 12/22/21 13:27 (unknown) (no (unknown) (unknown) incomplete, (units (un known) date) chronic avulsive unknown) injury at the tip of the fibula and small rim (unknown) (no (unknown) (unknown) mcg/actuation HFA (units (unknown) date) aerosol inhaler unknown) (unknown) (no (unknown) (unknown) methamphetamine (units (unknown) date) Allergy Verified unknown) 12/22/21 13:27 (unknown) (no (unknown) (unknown) morphine Allergy (units (unknown) date) Hallucinati unknown) Verified 12/22/21 13:27 (unknown) (no (unknown) (unknown) ng (units (unkno wn) date) unknown) (unknown) (no (unknown) (unknown) osteomyelitis (units ( unknown) date) unknown) (unknown) (no (unknown) (unknown) outside MRI foot: (units (unknown) date) unknown) (unknown) (no (unknown) (unknown) peroneal tendon (units (unknown) date) sheath compatible unknown) with tenosynovitis. (unknown) (no (unknown) (unknown) shrimp Allergy (units (unknown) date) Hives Verified unknown) 12/22/21 13:27 (unknown) (no (unknown) (unknown) states he left he (units (unknown) date) initially is very unknown) reluctant to share whether he left Against (unknown) (no (unknown) (unknown) subcutaneous fat (units (unknown) date) measuring 7 x 7 x unknown) 10 mm consistent with a small subcutaneous (unknown) (no (unknown) (unknown) tobacco type: (units ( unknown) date) cigarettes unknown) (unknown) (no (unknown) (unknown) toe MTP, no (units (un known) date) findings of unknown) synovitis.? There are some chronic tears of the deep (unknown) (no (unknown) (unknown) walnut Allergy (units (unknown) date) Verified 12/22/21 unknown) 13:27 Result panel 6 (unknown) (no (unknown) (unknown) (no value) (units (unk nown) date) unknown) (unknown) (no (unknown) (unknown) (Flovent HFA) (units ( unknown) date) unknown) (unknown) (no (unknown) (unknown) 0.09 mg IH Q4H Qty: (unit s (unknown) date) 1 3RF unknown) (unknown) (no (unknown) (unknown) 12/22/21 10:59 (units (unknown) date) unknown) (unknown) (no (unknown) (unknown) 12/22/21 13:05 (units (unknown) date) unknown) (unknown) (no (unknown) (unknown) 12/22/21 15:49 (units (unknown) date) unknown) (unknown) (no (unknown) (unknown) 12/22/21 15:50 (units (unknown) date) unknown) (unknown) (no (unknown) (unknown) 12/22/21 16:50 (units (unknown) date) unknown) (unknown) (no (unknown) (unknown) 12/22/21 (units (unkno wn) date) unknown) (unknown) (no (unknown) (unknown) 1 puff INH BIDRT (units (unknown) date) Qty: 1 3RF unknown) (unknown) (no (unknown) (unknown) 1 spray Intranasal (units (unknown) date) QDAY Qty: 1 3RF unknown) (unknown) (no (unknown) (unknown) 10:51 12/22/21 (units (unknown) date) unknown) (unknown) (no (unknown) (unknown) 1164 (units (unkno wn) date) unknown) (unknown) (no (unknown) (unknown) [address] [place] [address] (units (unknown) date) unknown) (unknown) (no (unknown) (unknown) 13:22 12/22/21 (units (unknown) date) unknown) (unknown) (no (unknown) (unknown) 13:30 12/22/21 (units (unknown) date) unknown) (unknown) (no (unknown) (unknown) 13:30 (units (unkno wn) date) unknown) (unknown) (no (unknown) (unknown) 14:00 12/22/21 (units (unknown) date) unknown) (unknown) (no (unknown) (unknown) 14:01 12/22/21 (units (unknown) date) unknown) (unknown) (no (unknown) (unknown) 14:01 (units (unkno wn) date) unknown) (unknown) (no (unknown) (unknown) 14:30 12/22/21 (units (unknown) date) unknown) (unknown) (no (unknown) (unknown) 15:00 12/22/21 (units (unknown) date) unknown) (unknown) (no (unknown) (unknown) 15:00 (units (unkno wn) date) unknown) (unknown) (no (unknown) (unknown) 16:38 (units (unkno wn) date) unknown) (unknown) (no (unknown) (unknown) 40 mg PO QDAY Qty: (units (unknown) date) 60 1RF unknown) (unknown) (no (unknown) (unknown) ? (units (unkno wn) date) unknown) (unknown) (no (unknown) (unknown) ABD:bowel sounds (units (unknown) date) normal, soft, unknown) non-tender, no guarding, rebound, rigidity, no (unknown) (no (unknown) (unknown) Accession Number: (units (unknown) date) [id number] ?? unknown) (unknown) (no (unknown) (unknown) Accession Number: (units (unknown) date) [id number] ?? unknown) (unknown) (no (unknown) (unknown) Acct:[id number] (units (unknown) date) unknown) (unknown) (no (unknown) (unknown) Age/Sex: 31 / M (units (unknown) date) unknown) (unknown) (no (unknown) (unknown) Allergies (units (unkn own) date) unknown) (unknown) (no (unknown) (unknown) Allergy/AdvReac (units (unknown) date) Type Severity unknown) Reaction Status Date / Time (unknown) (no (unknown) (unknown) [place] [id number] (unit s (unknown) date) unknown) (unknown) (no (unknown) (unknown) Approved by: (units (u nknown) date) Linda Gaspar M.D. unknown) on 12/22/2021 at 16:42?? (unknown) (no (unknown) (unknown) Approved by: Sissy (unit s (unknown) date) Robert Zhao on unknown) 12/22/2021 at 13:15?? (unknown) (no (unknown) (unknown) Attestation: I (units (unknown) date) personally reviewed unknown) and interpreted this ECG as follows: (unknown) (no (unknown) (unknown) Blood Culture Stat (units (unknown) date) unknown) (unknown) (no (unknown) (unknown) Blood Pressure (units (unknown) date) 117/61 unknown) (unknown) (no (unknown) (unknown) Blood Pressure (units (unknown) date) 118/56 L 12/22/21 unknown) 10:51 (unknown) (no (unknown) (unknown) Blood Pressure (units (unknown) date) 118/56 L 119/68 unknown) (unknown) (no (unknown) (unknown) Blood Pressure (units (unknown) date) 124/56 L unknown) (unknown) (no (unknown) (unknown) Blood Pressure (units (unknown) date) unknown) (unknown) (no (unknown) (unknown) Bones and chest (units (unknown) date) wall:? No suspicious unknown) bony lesions.? Overlying soft tissues (unknown) (no (unknown) (unknown) Bones:? No (units (unk nown) date) fractures or unknown) dislocations.? No suspicious bony lesions.? (unknown) (no (unknown) (unknown) CBC Auto Diff (units ( unknown) date) [Complete Blood unknown) Count AUTO DIFF] Stat (unknown) (no (unknown) (unknown) CMP [Comprehensive (units (unknown) date) Metabolic Panel] unknown) Stat (unknown) (no (unknown) (unknown) COMPARISON:? [place] (unit s (unknown) date) [facility], CR, CHEST unknown) 2 VIEW, 07/06/2010, 12:38. (unknown) (no (unknown) (unknown) COMPARISON:? None. (units (unknown) date) unknown) (unknown) (no (unknown) (unknown) CRP [C-Reactive (units (unknown) date) Protein Quant] Stat unknown) (unknown) (no (unknown) (unknown) Chest X-Ray (units (un known) date) (Signed) unknown) (unknown) (no (unknown) (unknown) Chest x-ray: (units (u nknown) date) unknown) (unknown) (no (unknown) (unknown) Chief Complaint: (units (unknown) date) Chest Pain unknown) (unknown) (no (unknown) (unknown) Close (units (unkno wn) date) unknown) (unknown) (no (unknown) (unknown) Consult to STEM PROCESSING MACHINE OPERATOR - (units (unknown) date) Catalogue Maker Stat unknown) (unknown) (no (unknown) (unknown) Course (units (unkno wn) date) unknown) (unknown) (no (unknown) (unknown) : 1990 (units (unknown) date) Acct:[id number] unknown) (unknown) (no (unknown) (unknown) : 1990 (units (unknown) date) unknown) (unknown) (no (unknown) (unknown) Date of Service: (units (unknown) date) 12/22/21 unknown) (unknown) (no (unknown) (unknown) Departure (units (unkn own) date) unknown) (unknown) (no (unknown) (unknown) Sissy Zhao (units (u nknown) date) unknown) (unknown) (no (unknown) (unknown) Dictated by: (units (u nknown) date) Linda Gaspar M.D. unknown) on 12/22/2021 at 16:41 ? ? (unknown) (no (unknown) (unknown) Dictated by: Sissy (unit s (unknown) date) Robert Zhao on unknown) 12/22/2021 at 13:14 ? ? (unknown) (no (unknown) (unknown) Discharge Plan (units (unknown) date) unknown) (unknown) (no (unknown) (unknown) Discontinued (units (u nknown) date) Medications unknown) (unknown) (no (unknown) (unknown) Documented By: CSD (units (unknown) date) unknown) (unknown) (no (unknown) (unknown) ECG Data (units (unkno wn) date) unknown) (unknown) (no (unknown) (unknown) ED Orders (units (unkn own) date) unknown) (unknown) (no (unknown) (unknown) EKG-12 Lead Stat (units (unknown) date) unknown) (unknown) (no (unknown) (unknown) ER Physician: (units ( unknown) date) Mank,Rosette C D.O. unknown) (unknown) (no (unknown) (unknown) ESR [Erythrocyte (units (unknown) date) Sedimentation Rate] unknown) Stat (unknown) (no (unknown) (unknown) Emergency Report (units (unknown) date) unknown) (unknown) (no (unknown) (unknown) Exam Narrative: (units (unknown) date) unknown) (unknown) (no (unknown) (unknown) Exam (units (unkno wn) date) unknown) (unknown) (no (unknown) (unknown) Extremity x-ray #1: (unit s (unknown) date) unknown) (unknown) (no (unknown) (unknown) FINDINGS:? (units (unk nown) date) unknown) (unknown) (no (unknown) (unknown) Fluticasone (units (un known) date) Propionate (FLONASE) unknown) 1 spray intranasal QDAY ##1 03/02/11 (unknown) (no (unknown) (unknown) Fluticasone (units (un known) date) Propionate (FLONASE) unknown) (unknown) (no (unknown) (unknown) Foot X-Ray (Signed) (unit s (unknown) date) unknown) (unknown) (no (unknown) (unknown) GEN: Thin slightly (units (unknown) date) disheveled male, unknown) alert and oriented x 3, patient appears to (unknown) (no (unknown) (unknown) :No CVA (units (unkn own) date) tenderness unknown) (unknown) (no (unknown) (unknown) General (units (unkno wn) date) unknown) (unknown) (no (unknown) (unknown) Linda Gaspar (units ( unknown) date) unknown) (unknown) (no (unknown) (unknown) HEART: Regular rate (unit s (unknown) date) and rhythm without unknown) murmur, clicks, rubs. Pulses are equal (unknown) (no (unknown) (unknown) HEENT: Atraumatic, (units (unknown) date) pupils are equal unknown) round reactive to light, extraocular (unknown) (no (unknown) (unknown) HPI - Chest Pain (units (unknown) date) unknown) (unknown) (no (unknown) (unknown) HPI narrative: (units (unknown) date) unknown) (unknown) (no (unknown) (unknown) History of Present (units (unknown) date) Illness unknown) (unknown) (no (unknown) (unknown) IMPRESSION:? Intact (unit s (unknown) date) left foot. unknown) (unknown) (no (unknown) (unknown) IMPRESSION:? No (units (unknown) date) acute process. unknown) (unknown) (no (unknown) (unknown) INDICATIONS:? chest (unit s (unknown) date) pain unknown) (unknown) (no (unknown) (unknown) INDICATIONS:? (units ( unknown) date) infection foot unknown) (unknown) (no (unknown) (unknown) Imaging Data (units (u nknown) date) unknown) (unknown) (no (unknown) (unknown) Initial Vital Signs (unit s (unknown) date) unknown) (unknown) (no (unknown) (unknown) Initial Vital (units ( unknown) date) Signs: unknown) (unknown) (no (unknown) (unknown) Interpretation: (units (unknown) date) unknown) (unknown) (no (unknown) (unknown) [facility] (units (unknown) date) [address] [place] [address] unknown) [place] [address] (unknown) (no (unknown) (unknown) [facility] (units (unknown) date) unknown) (unknown) (no (unknown) (unknown) LUNGS:Lungs clear (units (unknown) date) to auscultation, no unknown) wheezes, rales, crackles, chest moves (unknown) (no (unknown) (unknown) Lactate (Lactic (units (unknown) date) Acid) Stat unknown) (unknown) (no (unknown) (unknown) Last Admin: (units (un known) date) 12/22/21 13:34 Dose: unknown) 21 mg (unknown) (no (unknown) (unknown) Last Admin: (units (un known) date) 12/22/21 15:16 Dose: unknown) 1,000 mls/hr (unknown) (no (unknown) (unknown) Launch?Image (units (u nknown) date) unknown) (unknown) (no (unknown) (unknown) Limitations: no (units (unknown) date) limitations unknown) (unknown) (no (unknown) (unknown) Lipase Stat (units (un known) date) unknown) (unknown) (no (unknown) (unknown) Loc: ED (units (unkno wn) date) unknown) (unknown) (no (unknown) (unknown) Lungs and pleura:? (units (unknown) date) Lungs are clear.? No unknown) pleural effusions or pneumothorax.? (unknown) (no (unknown) (unknown) MAG [Magnesium] (units (unknown) date) Stat unknown) (unknown) (no (unknown) (unknown) MDM - Chest Pain (units (unknown) date) unknown) (unknown) (no (unknown) (unknown) MDM Narrative (units ( unknown) date) unknown) (unknown) (no (unknown) (unknown) MR#: [id number] (units (unknown) date) unknown) (unknown) (no (unknown) (unknown) MSCL: Non-tender, (units (unknown) date) no muscle atrophy, unknown) muscles strength 5/5 upper and lower (unknown) (no (unknown) (unknown) Mediastinum:? (units ( unknown) date) Mediastinal contours unknown) appear normal.? Heart size is normal.? (unknown) (no (unknown) (unknown) Medical Advice or (units (unknown) date) was discharged but unknown) states there was no plan in place. We are (unknown) (no (unknown) (unknown) Medical decision (units (unknown) date) making narrative: unknown) (unknown) (no (unknown) (unknown) Medication (units (unk nown) date) Instructions unknown) Recorded (unknown) (no (unknown) (unknown) Mode of arrival: (units (unknown) date) Ambulatory unknown) (unknown) (no (unknown) (unknown) NEURO:CN 2-12 (units ( unknown) date) intact, sensation unknown) normal (unknown) (no (unknown) (unknown) Narrative (units (unkn own) date) unknown) (unknown) (no (unknown) (unknown) Nicotine (Nicotine (units (unknown) date) 21 Mg Patch) 21 mg unknown) TOP NOW ONE (unknown) (no (unknown) (unknown) No Action (units (unkn own) date) unknown) (unknown) (no (unknown) (unknown) No signs of (units (un known) date) osteomyelitis but unknown) linear edema in the posterior process of the (unknown) (no (unknown) (unknown) ONE (units (unkno wn) date) unknown) (unknown) (no (unknown) (unknown) Ordered: (units (unkno wn) date) unknown) (unknown) (no (unknown) (unknown) Ordering Provider: (units (unknown) date) Rosette Warner D.O. unknown) (unknown) (no (unknown) (unknown) Orders (units (unkno wn) date) unknown) (unknown) (no (unknown) (unknown) Oxygen Delivery (units (unknown) date) Method 12/22/21 unknown) 10:51 (unknown) (no (unknown) (unknown) Oxygen Delivery (units (unknown) date) Method Room Air unknown) (unknown) (no (unknown) (unknown) Oxygen Delivery (units (unknown) date) Method unknown) (unknown) (no (unknown) (unknown) PROCEDURE:? XR (units (unknown) date) CHEST 1V unknown) (unknown) (no (unknown) (unknown) PROCEDURE:? XR FOOT (unit s (unknown) date) LT MIN 3V unknown) (unknown) (no (unknown) (unknown) Patient History (units (unknown) date) unknown) (unknown) (no (unknown) (unknown) Patient has normal (units (unknown) date) sensation unknown) throughout. (unknown) (no (unknown) (unknown) Patient: Carissa Murdock (unit s (unknown) date) Tamy MR#: [id number] unknown) (unknown) (no (unknown) (unknown) Patient: Carissa Murdock (unit s (unknown) date) J unknown) (unknown) (no (unknown) (unknown) Prescriptions: (units (unknown) date) unknown) (unknown) (no (unknown) (unknown) Previous Rx's (units ( unknown) date) unknown) (unknown) (no (unknown) (unknown) Procalcitonin Stat (units (unknown) date) unknown) (unknown) (no (unknown) (unknown) Procedure: XR chest (unit s (unknown) date) 1V unknown) (unknown) (no (unknown) (unknown) Procedure: XR foot (units (unknown) date) LT min 3V unknown) (unknown) (no (unknown) (unknown) Pulse Oximetry 98 (units (unknown) date) 12/22/21 10:51 unknown) (unknown) (no (unknown) (unknown) Pulse Oximetry 98 (units (unknown) date) 98 unknown) (unknown) (no (unknown) (unknown) Pulse Oximetry 98 (units (unknown) date) 99 unknown) (unknown) (no (unknown) (unknown) Pulse Oximetry 99 (units (unknown) date) 100 unknown) (unknown) (no (unknown) (unknown) Pulse Oximetry 99 (units (unknown) date) unknown) (unknown) (no (unknown) (unknown) Pulse Rate 81 82 (units (unknown) date) unknown) (unknown) (no (unknown) (unknown) Pulse Rate 85 (units ( unknown) date) 12/22/21 10:51 unknown) (unknown) (no (unknown) (unknown) Pulse Rate 85 80 (units (unknown) date) unknown) (unknown) (no (unknown) (unknown) Pulse Rate 86 86 (units (unknown) date) unknown) (unknown) (no (unknown) (unknown) Pulse Rate 90 97 H (units (unknown) date) unknown) (unknown) (no (unknown) (unknown) ROS Unobtainable: (units (unknown) date) All systems reviewed unknown) + are unremarkable except as noted in HPI (unknown) (no (unknown) (unknown) Radiologist's (units ( unknown) date) Impression: unknown) (unknown) (no (unknown) (unknown) Related Data (units (u nknown) date) unknown) (unknown) (no (unknown) (unknown) Respiratory Rate 18 (unit s (unknown) date) unknown) (unknown) (no (unknown) (unknown) Respiratory Rate 20 (unit s (unknown) date) 12/22/21 10:51 unknown) (unknown) (no (unknown) (unknown) Respiratory Rate 20 (unit s (unknown) date) unknown) (unknown) (no (unknown) (unknown) Respiratory Rate 24 (unit s (unknown) date) 18 unknown) (unknown) (no (unknown) (unknown) Respiratory Rate 27 (unit s (unknown) date) H 27 H unknown) (unknown) (no (unknown) (unknown) Review of Systems (units (unknown) date) unknown) (unknown) (no (unknown) (unknown) SKIN: Patient has (units (unknown) date) some mild erythema unknown) over the great toe and follow-up the foot (unknown) (no (unknown) (unknown) Signed By: (units (unk nown) date) unknown) (unknown) (no (unknown) (unknown) Signed (units (unkno wn) date) unknown) (unknown) (no (unknown) (unknown) Sinus rhythm rate (units (unknown) date) 82 [place] 142 QRS 96 QTC unknown) of 436. Patient has diffuse ST elevation (unknown) (no (unknown) (unknown) Smoking Status: (units (unknown) date) Current every day unknown) smoker (unknown) (no (unknown) (unknown) Social History (units (unknown) date) (Reviewed 12/22/21 @ unknown) 17:01 by Rosette Warner DO) (unknown) (no (unknown) (unknown) Sodium Chloride (units (unknown) date) (Normal Saline 0.9%) unknown) 1,000 mls @ 1,000 mls/hr IV BOLUS ONE (unknown) (no (unknown) (unknown) Soft tissues:? No (units (unknown) date) tibiotalar joint unknown) effusion.? Achilles tendon appears normal.? (unknown) (no (unknown) (unknown) Source: patient (units (unknown) date) unknown) (unknown) (no (unknown) (unknown) Stated Complaint: L (unit s (unknown) date) Foot pain/swelling. unknown) Chest pain (unknown) (no (unknown) (unknown) Stop: 12/22/21 (units (unknown) date) 13:07 unknown) (unknown) (no (unknown) (unknown) Stop: 12/22/21 (units (unknown) date) 16:14 unknown) (unknown) (no (unknown) (unknown) Stop: 12/22/21 (units (unknown) date) 17:18 unknown) (unknown) (no (unknown) (unknown) Substance Use Type: (unit s (unknown) date) opiates unknown) (unknown) (no (unknown) (unknown) Surgical changes (units (unknown) date) and devices:? None.? unknown) (unknown) (no (unknown) (unknown) TECHNIQUE:? One (units (unknown) date) view of the chest unknown) was acquired.? (unknown) (no (unknown) (unknown) TECHNIQUE:? Three (units (unknown) date) views of the foot unknown) were acquired.? (unknown) (no (unknown) (unknown) Temperature 98.1 F (units (unknown) date) 12/22/21 10:51 unknown) (unknown) (no (unknown) (unknown) Temperature 98.1 F (units (unknown) date) unknown) (unknown) (no (unknown) (unknown) Temperature (units (un known) date) unknown) (unknown) (no (unknown) (unknown) There is (units (unkno wn) date) unknown) (unknown) (no (unknown) (unknown) This is a (units (unkn own) date) 31-year-old male unknown) with history of IV drug abuse, prior endocarditis, (unknown) (no (unknown) (unknown) This is a (units (unkn own) date) 31-year-old male unknown) with history of endocarditis, multiple hospital (unknown) (no (unknown) (unknown) Time Seen by (units (u nknown) date) Provider: 12/22/21 unknown) 13:41 (unknown) (no (unknown) (unknown) Vancomycin (units (unk nown) date) HCl/Dextrose unknown) (Vancomycin) 1,500 mg in 300 mls @ 200 mls/hr IV NOW (unknown) (no (unknown) (unknown) Vital Signs - 8 hr (units (unknown) date) unknown) (unknown) (no (unknown) (unknown) Vital Signs (units (un known) date) unknown) (unknown) (no (unknown) (unknown) Vital signs: (units (u nknown) date) unknown) (unknown) (no (unknown) (unknown) XR chest 1V Stat (units (unknown) date) unknown) (unknown) (no (unknown) (unknown) XR foot LT min 3V (units (unknown) date) Stat unknown) (unknown) (no (unknown) (unknown) XRay Report (units (un known) date) unknown) (unknown) (no (unknown) (unknown) able to obtain (units (unknown) date) records patient was unknown) had an MRI that shows no features of (unknown) (no (unknown) (unknown) abscess in the (units (unknown) date) superficial soft unknown) tissues and small joint effusion at the great (unknown) (no (unknown) (unknown) aerosol inhaler (units (unknown) date) (Ventolin HFA) unknown) (unknown) (no (unknown) (unknown) albuterol sulfate (units (unknown) date) 90 mcg/actuation unknown) 0.09 mg IH Q4H ##1 08/24/11 (unknown) (no (unknown) (unknown) albuterol sulfate (units (unknown) date) [Ventolin HFA] 90 unknown) MCG/PUFF HFA aerosol inhaler (unknown) (no (unknown) (unknown) although unlikely (units (unknown) date) to change unknown) management. EKG shows some diffuse ST elevation and (unknown) (no (unknown) (unknown) and below (units (unkn own) date) unknown) (unknown) (no (unknown) (unknown) and procalcitonin. (units (unknown) date) Patient is denying unknown) any chest pain or shortness of breath or (unknown) (no (unknown) (unknown) antibiotics. (units (u nknown) date) Patient had MRI of unknown) the foot which was negative for osteomyelitis (unknown) (no (unknown) (unknown) appear (units (unkno wn) date) unknown) (unknown) (no (unknown) (unknown) be in mild (units (unk nown) date) distress. unknown) (unknown) (no (unknown) (unknown) better hospital but (unit s (unknown) date) he is never been unknown) here before. When we discussed what (unknown) (no (unknown) (unknown) bilateral lower (units (unknown) date) extremities. With 2+ unknown) dorsalis pedis bilaterally. Has some (unknown) (no (unknown) (unknown) brought him to the (units (unknown) date) area he states he unknown) knows people locally. He defers meeting (unknown) (no (unknown) (unknown) but denies frequent (unit s (unknown) date) or heavy use. unknown) Patient states he left the hospital because (unknown) (no (unknown) (unknown) but showed possible (unit s (unknown) date) small subcutaneous unknown) abscess with stress fracture and some (unknown) (no (unknown) (unknown) calcaneus near the (units (unknown) date) lateral wall of the unknown) calcaneus and a subtle sclerotic line (unknown) (no (unknown) (unknown) ce yesterday left (units (unknown) date) overnight Against unknown) Medical Advice had been receiving IV (unknown) (no (unknown) (unknown) cefazolin [From (units (unknown) date) Ancef] Allergy Hives unknown) Verified 12/22/21 13:21 (unknown) (no (unknown) (unknown) citalopram 20 mg (units (unknown) date) tablet (Celexa) 40 unknown) mg PO QDAY ##60 03/16/11 (unknown) (no (unknown) (unknown) citalopram [Celexa] (unit s (unknown) date) 20 MG tablet unknown) (unknown) (no (unknown) (unknown) codeine Allergy (units (unknown) date) Rash Verified unknown) 12/22/21 13:27 (unknown) (no (unknown) (unknown) consistent with a (units (unknown) date) small stress unknown) fracture in the calcaneus the fracture line is (unknown) (no (unknown) (unknown) currently denies (units (unknown) date) chest pain, unknown) shortness of breath, no nausea or vomiting, no (unknown) (no (unknown) (unknown) deltoid ligament (units (unknown) date) and ATFL and CFL.? unknown) There is also increased fluid at the (unknown) (no (unknown) (unknown) enhancing fluid (units (unknown) date) collection along the unknown) plantar aspect of the 2nd metatarsal in the (unknown) (no (unknown) (unknown) extremities, full (units (unknown) date) range of motion unknown) (unknown) (no (unknown) (unknown) fluticasone (units (un known) date) propionate 110 1 unknown) puff INH BIDRT ##1 03/02/11 (unknown) (no (unknown) (unknown) fluticasone (units (un known) date) propionate [Flovent unknown) HFA] 12 GM HFA aerosol inhaler (unknown) (no (unknown) (unknown) has used IV drugs (units (unknown) date) remotely, initially unknown) denies any illicit substances but then (unknown) (no (unknown) (unknown) he did not want to (units (unknown) date) be there anymore. He unknown) came here because he thinks it is a (unknown) (no (unknown) (unknown) hepatitis-C, asthma (unit s (unknown) date) and bipolar unknown) disorder. Patient states he had an injury to (unknown) (no (unknown) (unknown) his left foot at (units (unknown) date) some time unclear unknown) about the timing. He was at [facility] he (unknown) (no (unknown) (unknown) hydrocodone AdvReac (unit s (unknown) date) Vomiting Verified unknown) 12/22/21 13:27 (unknown) (no (unknown) (unknown) in 2 3 AVF as well (units (unknown) date) as Q-wave present. unknown) Patient has some mild elevation in (unknown) (no (unknown) (unknown) in upper and lower (units (unknown) date) extremities unknown) (unknown) (no (unknown) (unknown) incomplete, chronic (unit s (unknown) date) avulsive injury at unknown) the tip of the fibula and small rim (unknown) (no (unknown) (unknown) lab work initially (units (unknown) date) had chest x-ray, unknown) foot x-ray is a quick screening exam (unknown) (no (unknown) (unknown) lateral leads as (units (unknown) date) well. No reciprocal unknown) changes appreciated. (unknown) (no (unknown) (unknown) ligamentous change. (unit s (unknown) date) Podiatry was being unknown) consulted but had not seen the patient (unknown) (no (unknown) (unknown) ligamentous injury (units (unknown) date) that appeared old. unknown) Patient denies fevers, denies chills, he (unknown) (no (unknown) (unknown) masses noted, no (units (unknown) date) hepatosplenomegaly unknown) (unknown) (no (unknown) (unknown) mcg/actuation HFA (units (unknown) date) aerosol inhaler unknown) (unknown) (no (unknown) (unknown) methamphetamine (units (unknown) date) Allergy Verified unknown) 12/22/21 13:27 (unknown) (no (unknown) (unknown) morphine Allergy (units (unknown) date) Hallucinati Verified unknown) 12/22/21 13:27 (unknown) (no (unknown) (unknown) movements are (units ( unknown) date) intact, nares are unknown) clear, moist mucous membranes. (unknown) (no (unknown) (unknown) necessity of (units (u nknown) date) obtaining blood work unknown) to evaluate CBC, ESR, CRP, troponin, lactate (unknown) (no (unknown) (unknown) ng (units (unkno wn) date) unknown) (unknown) (no (unknown) (unknown) no radiodense (units ( unknown) date) foreign body or unknown) suspicious soft tissue gas. (unknown) (no (unknown) (unknown) on the left. No (units (unknown) date) fluctuance, slightly unknown) warm, there is no fluid collection easily (unknown) (no (unknown) (unknown) osteomyelitis but (units (unknown) date) did show a small unknown) subcutaneous abscess with stress fracture and (unknown) (no (unknown) (unknown) other GI or urinary (unit s (unknown) date) symptoms. Patient unknown) does answer questions but is not (unknown) (no (unknown) (unknown) other symptoms (units (unknown) date) consistent with unknown) endocarditis. (unknown) (no (unknown) (unknown) outside MRI foot: (units (unknown) date) unknown) (unknown) (no (unknown) (unknown) palpable. Patient (units (unknown) date) his mildly tender to unknown) touch. Cap refills less than 2 seconds (unknown) (no (unknown) (unknown) particularly (units (u nknown) date) forthcoming. He unknown) denies medical issues. He denies needing or (unknown) (no (unknown) (unknown) peroneal tendon (units (unknown) date) sheath compatible unknown) with tenosynovitis. (unknown) (no (unknown) (unknown) shrimp Allergy (units (unknown) date) Hives Verified unknown) 12/22/21 13:27 (unknown) (no (unknown) (unknown) small abrasions (units (unknown) date) that do not appear unknown) infected over the dorsum of the foot. (unknown) (no (unknown) (unknown) states he is used (units (unknown) date) methamphetamines. He unknown) does smoke tobacco. States uses alcohol (unknown) (no (unknown) (unknown) states he left he (units (unknown) date) initially is very unknown) reluctant to share whether he left Against (unknown) (no (unknown) (unknown) subcutaneous fat (units (unknown) date) measuring 7 x 7 x 10 unknown) mm consistent with a small subcutaneous (unknown) (no (unknown) (unknown) supposed to take (units (unknown) date) any medications. unknown) States he had surgery on his hand. States he (unknown) (no (unknown) (unknown) symmetrically, no (units (unknown) date) tachypnea accessory unknown) muscle use (unknown) (no (unknown) (unknown) tobacco type: (units ( unknown) date) cigarettes unknown) (unknown) (no (unknown) (unknown) toe MTP, no (units (un known) date) findings of unknown) synovitis.? There are some chronic tears of the deep (unknown) (no (unknown) (unknown) unremarkable.? (units (unknown) date) unknown) (unknown) (no (unknown) (unknown) visits sounds like (units (unknown) date) he may not have been unknown) fully treated. Was recently at [facility] (unknown) (no (unknown) (unknown) [place] Allergy (units (unknown) date) Verified 12/22/21 unknown) 13:27 (unknown) (no (unknown) (unknown) when he left. (units ( unknown) date) Presents here he unknown) does not appear to be septic, patient refused (unknown) (no (unknown) (unknown) with his IV drug (units (unknown) date) history and unknown) endocarditis history discussed with patient the (unknown) (no (unknown) (unknown) with our social (units (unknown) date) worker today. unknown) Result panel 7 (unknown) (no date) (unknown) (unknown) 1.6 mmol/l (unkn own) Result panel 8 (unknown) (no date) (unknown) (unknown) > 60 ml/min (unkn own) (unknown) (no date) (unknown) (unknown) > 60 ml/min (unkn own) (unknown) (no date) (unknown) (unknown) 0.2 mg/dl (unkn own) (unknown) (no date) (unknown) (unknown) 0.70 mg/dl (unkn own) (unknown) (no date) (unknown) (unknown) 1.0 (units unknown) (unknown) (unknown) (no date) (unknown) (unknown) 1.6 mg/dl (unkn own) (unknown) (no date) (unknown) (unknown) 103 mmol/l (unkn own) (unknown) (no date) (unknown) (unknown) 124 mg/dl (unkn own) (unknown) (no date) (unknown) (unknown) 124 mg/dl (unkn own) (unknown) (no date) (unknown) (unknown) 138 mmol/l (unkn own) (unknown) (no date) (unknown) (unknown) 17 mg/dl (unkn own) (unknown) (no date) (unknown) (unknown) 23 iu/l (unkn own) (unknown) (no date) (unknown) (unknown) 24.3 (units unknown) (unknown) (unknown) (no date) (unknown) (unknown) 3.0 g/dl (unkn own) (unknown) (no date) (unknown) (unknown) 3.1 g/dl (unkn own) (unknown) (no date) (unknown) (unknown) 3.6 mmol/l (unkn own) (unknown) (no date) (unknown) (unknown) 30 mmol/l (unkn own) (unknown) (no date) (unknown) (unknown) 31 iu/l (unkn own) (unknown) (no date) (unknown) (unknown) 56 u/l (unkn own) (unknown) (no date) (unknown) (unknown) 6.1 g/dl (unkn own) (unknown) (no date) (unknown) (unknown) 7.9 mg/dl (unkn own) (unknown) (no date) (unknown) (unknown) 76 u/l (unkn own) Result panel 9 (unknown) (no date) (unknown) (unknown) 6 mm/hr (unkn own) Result panel 10 (unknown) (no date) (unknown) (unknown) 2.0 mg/dl (unkn own) Result panel 11 (unknown) (no date) (unknown) (unknown) 0.09 ng/ml (unkn own) (unknown) (no date) (unknown) (unknown) 0.09 ng/ml (unkn own) (unknown) (no date) (unknown) (unknown) 2.0 mg/dl (unkn own) Result panel 12 (unknown) (no (unknown) (unknown) (no value) (units (unk nown) date) unknown) (unknown) (no (unknown) (unknown) (Flovent HFA) (units ( unknown) date) unknown) (unknown) (no (unknown) (unknown) 0.09 mg IH Q4H Qty: (unit s (unknown) date) 1 3RF unknown) (unknown) (no (unknown) (unknown) 12/22/21 12/22/21 (units (unknown) date) 12/22/21 Range/Units unknown) (unknown) (no (unknown) (unknown) 12/22/21 12/22/21 (units (unknown) date) Range/Units unknown) (unknown) (no (unknown) (unknown) 12/22/21 10:59 (units (unknown) date) unknown) (unknown) (no (unknown) (unknown) 12/22/21 13:05 (units (unknown) date) unknown) (unknown) (no (unknown) (unknown) 12/22/21 15:49 (units (unknown) date) unknown) (unknown) (no (unknown) (unknown) 12/22/21 16:35 (units (unknown) date) unknown) (unknown) (no (unknown) (unknown) 12/22/21 16:42 (units (unknown) date) unknown) (unknown) (no (unknown) (unknown) 12/22/21 (units (unkno wn) date) unknown) (unknown) (no (unknown) (unknown) 1 puff INH BIDRT (units (unknown) date) Qty: 1 3RF unknown) (unknown) (no (unknown) (unknown) 1 spray Intranasal (units (unknown) date) QDAY Qty: 1 3RF unknown) (unknown) (no (unknown) (unknown) 10:51 12/22/21 (units (unknown) date) unknown) (unknown) (no (unknown) (unknown) 1164 (units (unkno wn) date) unknown) (unknown) (no (unknown) (unknown) [address] (units (unknown) date) unknown) (unknown) (no (unknown) (unknown) 13:22 12/22/21 (units (unknown) date) unknown) (unknown) (no (unknown) (unknown) 13:30 12/22/21 (units (unknown) date) unknown) (unknown) (no (unknown) (unknown) 13:30 (units (unkno wn) date) unknown) (unknown) (no (unknown) (unknown) 14:00 12/22/21 (units (unknown) date) unknown) (unknown) (no (unknown) (unknown) 14:01 12/22/21 (units (unknown) date) unknown) (unknown) (no (unknown) (unknown) 14:01 (units (unkno wn) date) unknown) (unknown) (no (unknown) (unknown) 14:30 12/22/21 (units (unknown) date) unknown) (unknown) (no (unknown) (unknown) 15:00 12/22/21 (units (unknown) date) unknown) (unknown) (no (unknown) (unknown) 15:00 (units (unkno wn) date) unknown) (unknown) (no (unknown) (unknown) 15:30 12/22/21 (units (unknown) date) unknown) (unknown) (no (unknown) (unknown) 15:30 (units (unkno wn) date) unknown) (unknown) (no (unknown) (unknown) 16:00 12/22/21 (units (unknown) date) unknown) (unknown) (no (unknown) (unknown) 16:00 (units (unkno wn) date) unknown) (unknown) (no (unknown) (unknown) 16:30 (units (unkno wn) date) unknown) (unknown) (no (unknown) (unknown) 16:35 16:35 16:35 (units (unknown) date) unknown) (unknown) (no (unknown) (unknown) 16:35 16:35 (units (un known) date) unknown) (unknown) (no (unknown) (unknown) 16:38 12/22/21 (units (unknown) date) unknown) (unknown) (no (unknown) (unknown) 40 mg PO QDAY Qty: (units (unknown) date) 60 1RF unknown) (unknown) (no (unknown) (unknown) ? (units (unkno wn) date) unknown) (unknown) (no (unknown) (unknown) ABD:bowel sounds (units (unknown) date) normal, soft, unknown) non-tender, no guarding, rebound, rigidity, no (unknown) (no (unknown) (unknown) ALT (<50) IU/L (units (unknown) date) unknown) (unknown) (no (unknown) (unknown) ALT 23 (<50) IU/L (units (unknown) date) unknown) (unknown) (no (unknown) (unknown) AST (17-59) IU/L (units (unknown) date) unknown) (unknown) (no (unknown) (unknown) AST 31 (17-59) IU/L (unit s (unknown) date) unknown) (unknown) (no (unknown) (unknown) Accession Number: (units (unknown) date) [id number] ?? unknown) (unknown) (no (unknown) (unknown) Accession Number: (units (unknown) date) [id number] ?? unknown) (unknown) (no (unknown) (unknown) Acct:[id number] (units (unknown) date) unknown) (unknown) (no (unknown) (unknown) Age/Sex: 31 / M (units (unknown) date) unknown) (unknown) (no (unknown) (unknown) Albumin (3.5-5.0) (units (unknown) date) g/dL unknown) (unknown) (no (unknown) (unknown) Albumin 3.1 L (units ( unknown) date) (3.5-5.0) g/dL unknown) (unknown) (no (unknown) (unknown) Albumin/Globulin (units (unknown) date) Ratio (1.0-2.8) unknown) (unknown) (no (unknown) (unknown) Albumin/Globulin (units (unknown) date) Ratio 1.0 (1.0-2.8) unknown) (unknown) (no (unknown) (unknown) Alkaline (units (unkno wn) date) Phosphatase (38-126) unknown) U/L (unknown) (no (unknown) (unknown) Alkaline (units (unkno wn) date) Phosphatase 76 unknown) (38-126) U/L (unknown) (no (unknown) (unknown) Allergies (units (unkn own) date) unknown) (unknown) (no (unknown) (unknown) Allergy/AdvReac (units (unknown) date) Type Severity unknown) Reaction Status Date / Time (unknown) (no (unknown) (unknown) [place] [address] (unit s (unknown) date) unknown) (unknown) (no (unknown) (unknown) Approved by: (units (u nknown) date) Linda Gaspar M.D. unknown) on 12/22/2021 at 16:42?? (unknown) (no (unknown) (unknown) Approved by: Sissy (unit s (unknown) date) Robert Zhao on unknown) 12/22/2021 at 13:15?? (unknown) (no (unknown) (unknown) Attestation: I (units (unknown) date) personally reviewed unknown) and interpreted this ECG as follows: (unknown) (no (unknown) (unknown) BUN (9-20) mg/dL (units (unknown) date) unknown) (unknown) (no (unknown) (unknown) BUN 17 (9-20) mg/dL (unit s (unknown) date) unknown) (unknown) (no (unknown) (unknown) BUN/Creatinine (units (unknown) date) Ratio (6-22) unknown) (unknown) (no (unknown) (unknown) BUN/Creatinine (units (unknown) date) Ratio 24.3 H (6-22) unknown) (unknown) (no (unknown) (unknown) Baso # (Auto) (units ( unknown) date) (0-100) /uL unknown) (unknown) (no (unknown) (unknown) Baso # (Auto) 0 (units (unknown) date) (0-100) /uL unknown) (unknown) (no (unknown) (unknown) Baso % (Auto) (0-2) (unit s (unknown) date) % unknown) (unknown) (no (unknown) (unknown) Baso % (Auto) 0.7 (units (unknown) date) (0-2) % unknown) (unknown) (no (unknown) (unknown) Blood Culture Stat (units (unknown) date) unknown) (unknown) (no (unknown) (unknown) Blood Pressure (units (unknown) date) 116/53 L unknown) (unknown) (no (unknown) (unknown) Blood Pressure (units (unknown) date) 117/61 unknown) (unknown) (no (unknown) (unknown) Blood Pressure (units (unknown) date) 118/56 L 12/22/21 unknown) 10:51 (unknown) (no (unknown) (unknown) Blood Pressure (units (unknown) date) 118/56 L 119/68 unknown) (unknown) (no (unknown) (unknown) Blood Pressure (units (unknown) date) 124/56 L unknown) (unknown) (no (unknown) (unknown) Blood Pressure (units (unknown) date) 132/66 unknown) (unknown) (no (unknown) (unknown) Blood Pressure (units (unknown) date) unknown) (unknown) (no (unknown) (unknown) Bones and chest (units (unknown) date) wall:? No suspicious unknown) bony lesions.? Overlying soft tissues (unknown) (no (unknown) (unknown) Bones:? No (units (unk nown) date) fractures or unknown) dislocations.? No suspicious bony lesions.? (unknown) (no (unknown) (unknown) C-Reactive Protein (units (unknown) date) (<1.0) mg/dL unknown) (unknown) (no (unknown) (unknown) C-Reactive Protein (units (unknown) date) 2.0 H (<1.0) mg/dL unknown) (unknown) (no (unknown) (unknown) CBC Auto Diff (units ( unknown) date) [Complete Blood unknown) Count AUTO DIFF] Stat (unknown) (no (unknown) (unknown) CMP [Comprehensive (units (unknown) date) Metabolic Panel] unknown) Stat (unknown) (no (unknown) (unknown) [facility], [facility], CHEST unknown) 2 VIEW, 07/06/2010, 12:38. (unknown) (no (unknown) (unknown) COMPARISON:? None. (units (unknown) date) unknown) (unknown) (no (unknown) (unknown) CRP [C-Reactive (units (unknown) date) Protein Quant] Stat unknown) (unknown) (no (unknown) (unknown) Calcium (8.4-10.2) (units (unknown) date) mg/dL unknown) (unknown) (no (unknown) (unknown) Calcium 7.9 L (units ( unknown) date) (8.4-10.2) mg/dL unknown) (unknown) (no (unknown) (unknown) Carbon Dioxide (units (unknown) date) (22-32) mmol/L unknown) (unknown) (no (unknown) (unknown) Carbon Dioxide 30 (units (unknown) date) (22-32) mmol/L unknown) (unknown) (no (unknown) (unknown) Chest X-Ray (units (un known) date) (Signed) unknown) (unknown) (no (unknown) (unknown) Chest x-ray: (units (u nknown) date) unknown) (unknown) (no (unknown) (unknown) Chief Complaint: (units (unknown) date) Chest Pain unknown) (unknown) (no (unknown) (unknown) Chloride (98-107) (units (unknown) date) mmol/L unknown) (unknown) (no (unknown) (unknown) Chloride 103 (units (u nknown) date) (98-107) mmol/L unknown) (unknown) (no (unknown) (unknown) Close (units (unkno wn) date) unknown) (unknown) (no (unknown) (unknown) Consult to [facility] - (units (unknown) date) Catalogue Maker Stat unknown) (unknown) (no (unknown) (unknown) Course (units (unkno wn) date) unknown) (unknown) (no (unknown) (unknown) Creatinine (units (unk nown) date) (0.66-1.25) mg/dL unknown) (unknown) (no (unknown) (unknown) Creatinine 0.70 (units (unknown) date) (0.66-1.25) mg/dL unknown) (unknown) (no (unknown) (unknown) : 1990 (units (unknown) date) Acct:[id number] unknown) (unknown) (no (unknown) (unknown) : 1990 (units (unknown) date) unknown) (unknown) (no (unknown) (unknown) Date of Service: (units (unknown) date) 12/22/21 unknown) (unknown) (no (unknown) (unknown) Departure (units (unkn own) date) unknown) (unknown) (no (unknown) (unknown) Sissy Zhao (units (u nknown) date) unknown) (unknown) (no (unknown) (unknown) Dictated by: (units (u nknown) date) Linda Gaspar M.D. unknown) on 12/22/2021 at 16:41 ? ? (unknown) (no (unknown) (unknown) Dictated by: Sissy (unit s (unknown) date) Robert Zhao on unknown) 12/22/2021 at 13:14 ? ? (unknown) (no (unknown) (unknown) Discharge Plan (units (unknown) date) unknown) (unknown) (no (unknown) (unknown) Discontinued (units (u nknown) date) Medications unknown) (unknown) (no (unknown) (unknown) Documented By: [facility]SD (units (unknown) date) unknown) (unknown) (no (unknown) (unknown) ECG Data (units (unkno wn) date) unknown) (unknown) (no (unknown) (unknown) ED Orders (units (unkn own) date) unknown) (unknown) (no (unknown) (unknown) EKG-12 Lead Stat (units (unknown) date) unknown) (unknown) (no (unknown) (unknown) ER Physician: (units ( unknown) date) Rosette Warner D.O. unknown) (unknown) (no (unknown) (unknown) ESR (0-15) MM/HR (units (unknown) date) unknown) (unknown) (no (unknown) (unknown) ESR 6 (0-15) MM/HR (units (unknown) date) unknown) (unknown) (no (unknown) (unknown) ESR [Erythrocyte (units (unknown) date) Sedimentation Rate] unknown) Stat (unknown) (no (unknown) (unknown) Emergency Report (units (unknown) date) unknown) (unknown) (no (unknown) (unknown) Eos # (Auto) (units (u nknown) date) (0-450) /uL unknown) (unknown) (no (unknown) (unknown) Eos # (Auto) 300 (units (unknown) date) (0-450) /uL unknown) (unknown) (no (unknown) (unknown) Eos % (Auto) (2-4) (units (unknown) date) % unknown) (unknown) (no (unknown) (unknown) Eos % (Auto) 4.1 H (units (unknown) date) (2-4) % unknown) (unknown) (no (unknown) (unknown) Estimated GFR > 60 (units (unknown) date) (>60) mL/min unknown) (unknown) (no (unknown) (unknown) Estimated GFR (>60) (unit s (unknown) date) mL/min unknown) (unknown) (no (unknown) (unknown) Exam Narrative: (units (unknown) date) unknown) (unknown) (no (unknown) (unknown) Exam (units (unkno wn) date) unknown) (unknown) (no (unknown) (unknown) Extremity x-ray #1: (unit s (unknown) date) unknown) (unknown) (no (unknown) (unknown) FINDINGS:? (units (unk nown) date) unknown) (unknown) (no (unknown) (unknown) Fluticasone (units (un known) date) Propionate (FLONASE) unknown) 1 spray intranasal QDAY ##1 03/02/11 (unknown) (no (unknown) (unknown) Fluticasone (units (un known) date) Propionate (FLONASE) unknown) (unknown) (no (unknown) (unknown) Foot X-Ray (Signed) (unit s (unknown) date) unknown) (unknown) (no (unknown) (unknown) GEN: Thin slightly (units (unknown) date) disheveled male, unknown) alert and oriented x 3, patient appears to (unknown) (no (unknown) (unknown) :No CVA (units (unkn own) date) tenderness unknown) (unknown) (no (unknown) (unknown) General (units (unkno wn) date) unknown) (unknown) (no (unknown) (unknown) Globulin (1.7-4.1) (units (unknown) date) g/dL unknown) (unknown) (no (unknown) (unknown) Globulin 3.0 (units (u nknown) date) (1.7-4.1) g/dL unknown) (unknown) (no (unknown) (unknown) Glucose (70-100) (units (unknown) date) mg/dL unknown) (unknown) (no (unknown) (unknown) Glucose 124 H (units ( unknown) date) (70-100) mg/dL unknown) (unknown) (no (unknown) (unknown) Hubert,Linda (units ( unknown) date) unknown) (unknown) (no (unknown) (unknown) HEART: Regular rate (unit s (unknown) date) and rhythm without unknown) murmur, clicks, rubs. Pulses are equal (unknown) (no (unknown) (unknown) HEENT: Atraumatic, (units (unknown) date) pupils are equal unknown) round reactive to light, extraocular (unknown) (no (unknown) (unknown) HPI - Chest Pain (units (unknown) date) unknown) (unknown) (no (unknown) (unknown) HPI narrative: (units (unknown) date) unknown) (unknown) (no (unknown) (unknown) Hct (41-53) % (units ( unknown) date) unknown) (unknown) (no (unknown) (unknown) Hct 36.5 L (41-53) (units (unknown) date) % unknown) (unknown) (no (unknown) (unknown) Hgb (13.5-17.5) (units (unknown) date) g/dL unknown) (unknown) (no (unknown) (unknown) Hgb 12.6 L (units (unk nown) date) (13.5-17.5) g/dL unknown) (unknown) (no (unknown) (unknown) History of Present (units (unknown) date) Illness unknown) (unknown) (no (unknown) (unknown) IMPRESSION:? Intact (unit s (unknown) date) left foot. unknown) (unknown) (no (unknown) (unknown) IMPRESSION:? No (units (unknown) date) acute process. unknown) (unknown) (no (unknown) (unknown) INDICATIONS:? chest (unit s (unknown) date) pain unknown) (unknown) (no (unknown) (unknown) INDICATIONS:? (units ( unknown) date) infection foot unknown) (unknown) (no (unknown) (unknown) Imaging Data (units (u nknown) date) unknown) (unknown) (no (unknown) (unknown) Initial Vital Signs (unit s (unknown) date) unknown) (unknown) (no (unknown) (unknown) Initial Vital (units ( unknown) date) Signs: unknown) (unknown) (no (unknown) (unknown) Interpretation: (units (unknown) date) unknown) (unknown) (no (unknown) (unknown) [facility] (units (unknown) date) [address] unknown) [place] [address] (unknown) (no (unknown) (unknown) [facility] (units (unknown) date) unknown) (unknown) (no (unknown) (unknown) LUNGS:Lungs clear (units (unknown) date) to auscultation, no unknown) wheezes, rales, crackles, chest moves (unknown) (no (unknown) (unknown) Lab Data (units (unkno wn) date) unknown) (unknown) (no (unknown) (unknown) Lab Results (units (un known) date) unknown) (unknown) (no (unknown) (unknown) Labs: (units (unkno wn) date) unknown) (unknown) (no (unknown) (unknown) Lactate (0.7-2.1) (units (unknown) date) mmol/L unknown) (unknown) (no (unknown) (unknown) Lactate (Lactic (units (unknown) date) Acid) Stat unknown) (unknown) (no (unknown) (unknown) Lactate 1.6 (units (un known) date) (0.7-2.1) mmol/L unknown) (unknown) (no (unknown) (unknown) Last Admin: (units (un known) date) 12/22/21 13:34 Dose: unknown) 21 mg (unknown) (no (unknown) (unknown) Last Admin: (units (un known) date) 12/22/21 15:16 Dose: unknown) 1,000 mls/hr (unknown) (no (unknown) (unknown) Launch?Image (units (u nknown) date) unknown) (unknown) (no (unknown) (unknown) Limitations: no (units (unknown) date) limitations unknown) (unknown) (no (unknown) (unknown) Lipase (23-300) U/L (unit s (unknown) date) unknown) (unknown) (no (unknown) (unknown) Lipase 56 (23-300) (units (unknown) date) U/L unknown) (unknown) (no (unknown) (unknown) Lipase Stat (units (un known) date) unknown) (unknown) (no (unknown) (unknown) Loc: ED (units (unkno wn) date) unknown) (unknown) (no (unknown) (unknown) Lungs and pleura:? (units (unknown) date) Lungs are clear.? No unknown) pleural effusions or pneumothorax.? (unknown) (no (unknown) (unknown) Lymph # (Auto) (units (unknown) date) (4280-8796) /uL unknown) (unknown) (no (unknown) (unknown) Lymph # (Auto) 2600 (unit s (unknown) date) (9619-9573) /uL unknown) (unknown) (no (unknown) (unknown) Lymph % (Auto) (units (unknown) date) (25-40) % unknown) (unknown) (no (unknown) (unknown) Lymph % (Auto) 39.2 (unit s (unknown) date) (25-40) % unknown) (unknown) (no (unknown) (unknown) MAG [Magnesium] (units (unknown) date) Stat unknown) (unknown) (no (unknown) (unknown) MCH (26-34) PG (units (unknown) date) unknown) (unknown) (no (unknown) (unknown) MCH 32.7 (26-34) PG (unit s (unknown) date) unknown) (unknown) (no (unknown) (unknown) MCHC (30-36) % (units (unknown) date) unknown) (unknown) (no (unknown) (unknown) MCHC 34.6 (30-36) % (unit s (unknown) date) unknown) (unknown) (no (unknown) (unknown) MCV (80-100) fL (units (unknown) date) unknown) (unknown) (no (unknown) (unknown) MCV 94.5 (80-100) (units (unknown) date) fL unknown) (unknown) (no (unknown) (unknown) MDM - Chest Pain (units (unknown) date) unknown) (unknown) (no (unknown) (unknown) MDM Narrative (units ( unknown) date) unknown) (unknown) (no (unknown) (unknown) MR#: [id number] (units (unknown) date) unknown) (unknown) (no (unknown) (unknown) MSCL: Non-tender, (units (unknown) date) no muscle atrophy, unknown) muscles strength 5/5 upper and lower (unknown) (no (unknown) (unknown) Magnesium (1.6-2.3) (unit s (unknown) date) mg/dL unknown) (unknown) (no (unknown) (unknown) Magnesium 1.6 (units ( unknown) date) (1.6-2.3) mg/dL unknown) (unknown) (no (unknown) (unknown) Mediastinum:? (units ( unknown) date) Mediastinal contours unknown) appear normal.? Heart size is normal.? (unknown) (no (unknown) (unknown) Medical Advice or (units (unknown) date) was discharged but unknown) states there was no plan in place. We are (unknown) (no (unknown) (unknown) Medical decision (units (unknown) date) making narrative: unknown) (unknown) (no (unknown) (unknown) Medication (units (unk nown) date) Instructions unknown) Recorded (unknown) (no (unknown) (unknown) Mode of arrival: (units (unknown) date) Ambulatory unknown) (unknown) (no (unknown) (unknown) [place] # (Auto) (units ( unknown) date) (0-900) /uL unknown) (unknown) (no (unknown) (unknown) [place] # (Auto) 500 (units (unknown) date) (0-900) /uL unknown) (unknown) (no (unknown) (unknown) [place] % (Auto) (units ( unknown) date) (3-14) % unknown) (unknown) (no (unknown) (unknown) [place] % (Auto) 7.8 (units (unknown) date) (3-14) % unknown) (unknown) (no (unknown) (unknown) NEURO:CN 2-12 (units ( unknown) date) intact, sensation unknown) normal (unknown) (no (unknown) (unknown) Narrative (units (unkn own) date) unknown) (unknown) (no (unknown) (unknown) Neut # (Auto) (units ( unknown) date) (4311-9087) /uL unknown) (unknown) (no (unknown) (unknown) Neut # (Auto) 3200 (units (unknown) date) (4647-7847) /uL unknown) (unknown) (no (unknown) (unknown) Neut % (Auto) (units ( unknown) date) (50-75) % unknown) (unknown) (no (unknown) (unknown) Neut % (Auto) 48.2 (units (unknown) date) L (50-75) % unknown) (unknown) (no (unknown) (unknown) Nicotine (Nicotine (units (unknown) date) 21 Mg Patch) 21 mg unknown) TOP NOW ONE (unknown) (no (unknown) (unknown) No Action (units (unkn own) date) unknown) (unknown) (no (unknown) (unknown) No signs of (units (un known) date) osteomyelitis but unknown) linear edema in the posterior process of the (unknown) (no (unknown) (unknown) ONE (units (unkno wn) date) unknown) (unknown) (no (unknown) (unknown) Ordered: (units (unkno wn) date) unknown) (unknown) (no (unknown) (unknown) Ordering Provider: (units (unknown) date) Rosette Warner D.O. unknown) (unknown) (no (unknown) (unknown) Orders (units (unkno wn) date) unknown) (unknown) (no (unknown) (unknown) Oxygen Delivery (units (unknown) date) Method 12/22/21 unknown) 10:51 (unknown) (no (unknown) (unknown) Oxygen Delivery (units (unknown) date) Method Room Air unknown) (unknown) (no (unknown) (unknown) Oxygen Delivery (units (unknown) date) Method unknown) (unknown) (no (unknown) (unknown) PROCEDURE:? XR (units (unknown) date) CHEST 1V unknown) (unknown) (no (unknown) (unknown) PROCEDURE:? XR FOOT (unit s (unknown) date) LT MIN 3V unknown) (unknown) (no (unknown) (unknown) Patient History (units (unknown) date) unknown) (unknown) (no (unknown) (unknown) Patient has normal (units (unknown) date) sensation unknown) throughout. (unknown) (no (unknown) (unknown) Patient: Carissa Murdock (unit s (unknown) date) Tamy MR#: [id number] unknown) (unknown) (no (unknown) (unknown) Patient: Carissa Murdock (unit s (unknown) date) J unknown) (unknown) (no (unknown) (unknown) Plt Count (150-400) (unit s (unknown) date) X103/uL unknown) (unknown) (no (unknown) (unknown) Plt Count 247 (units ( unknown) date) (150-400) X103/uL unknown) (unknown) (no (unknown) (unknown) Potassium (3.4-5.1) (unit s (unknown) date) mmol/L unknown) (unknown) (no (unknown) (unknown) Potassium 3.6 (units ( unknown) date) (3.4-5.1) mmol/L unknown) (unknown) (no (unknown) (unknown) Prescriptions: (units (unknown) date) unknown) (unknown) (no (unknown) (unknown) Previous Rx's (units ( unknown) date) unknown) (unknown) (no (unknown) (unknown) Procalcitonin (units ( unknown) date) (<0.5) ng/mL unknown) (unknown) (no (unknown) (unknown) Procalcitonin 0.09 (units (unknown) date) (<0.5) ng/mL unknown) (unknown) (no (unknown) (unknown) Procalcitonin Stat (units (unknown) date) unknown) (unknown) (no (unknown) (unknown) Procedure: XR chest (unit s (unknown) date) 1V unknown) (unknown) (no (unknown) (unknown) Procedure: XR foot (units (unknown) date) LT min 3V unknown) (unknown) (no (unknown) (unknown) [place] yesterday (unit s (unknown) date) left overnight unknown) Against Medical Advice had been receiving IV (unknown) (no (unknown) (unknown) Pulse Oximetry 98 (units (unknown) date) 12/22/21 10:51 unknown) (unknown) (no (unknown) (unknown) Pulse Oximetry 98 (units (unknown) date) 98 unknown) (unknown) (no (unknown) (unknown) Pulse Oximetry 98 (units (unknown) date) 99 unknown) (unknown) (no (unknown) (unknown) Pulse Oximetry 98 (units (unknown) date) unknown) (unknown) (no (unknown) (unknown) Pulse Oximetry 99 (units (unknown) date) 100 unknown) (unknown) (no (unknown) (unknown) Pulse Oximetry 99 (units (unknown) date) 98 unknown) (unknown) (no (unknown) (unknown) Pulse Oximetry 99 (units (unknown) date) unknown) (unknown) (no (unknown) (unknown) Pulse Rate 81 82 (units (unknown) date) unknown) (unknown) (no (unknown) (unknown) Pulse Rate 85 (units ( unknown) date) 12/22/21 10:51 unknown) (unknown) (no (unknown) (unknown) Pulse Rate 85 80 (units (unknown) date) unknown) (unknown) (no (unknown) (unknown) Pulse Rate 86 86 (units (unknown) date) unknown) (unknown) (no (unknown) (unknown) Pulse Rate 86 (units ( unknown) date) unknown) (unknown) (no (unknown) (unknown) Pulse Rate 89 91 H (units (unknown) date) unknown) (unknown) (no (unknown) (unknown) Pulse Rate 90 97 H (units (unknown) date) unknown) (unknown) (no (unknown) (unknown) RBC (4.5-5.9) (units ( unknown) date) X106/uL unknown) (unknown) (no (unknown) (unknown) RBC 3.86 L (units (unk nown) date) (4.5-5.9) X106/uL unknown) (unknown) (no (unknown) (unknown) RDW (11.6-14.8) % (units (unknown) date) unknown) (unknown) (no (unknown) (unknown) RDW 13.3 (units (unkno wn) date) (11.6-14.8) % unknown) (unknown) (no (unknown) (unknown) ROS Unobtainable: (units (unknown) date) All systems reviewed unknown) + are unremarkable except as noted in HPI (unknown) (no (unknown) (unknown) Radiologist's (units ( unknown) date) Impression: unknown) (unknown) (no (unknown) (unknown) Related Data (units (u nknown) date) unknown) (unknown) (no (unknown) (unknown) Respiratory Rate 18 (unit s (unknown) date) unknown) (unknown) (no (unknown) (unknown) Respiratory Rate 20 (unit s (unknown) date) 12/22/21 10:51 unknown) (unknown) (no (unknown) (unknown) Respiratory Rate 20 (unit s (unknown) date) unknown) (unknown) (no (unknown) (unknown) Respiratory Rate 24 (unit s (unknown) date) 18 unknown) (unknown) (no (unknown) (unknown) Respiratory Rate 27 (unit s (unknown) date) H 27 H unknown) (unknown) (no (unknown) (unknown) Respiratory Rate 28 (unit s (unknown) date) H 15 unknown) (unknown) (no (unknown) (unknown) Respiratory Rate (units (unknown) date) unknown) (unknown) (no (unknown) (unknown) Result diagrams: (units (unknown) date) unknown) (unknown) (no (unknown) (unknown) Review of Systems (units (unknown) date) unknown) (unknown) (no (unknown) (unknown) SKIN: Patient has (units (unknown) date) some mild erythema unknown) over the great toe and follow-up the foot (unknown) (no (unknown) (unknown) Signed By: (units (unk nown) date) unknown) (unknown) (no (unknown) (unknown) Signed (units (unkno wn) date) unknown) (unknown) (no (unknown) (unknown) Sinus rhythm rate (units (unknown) date) 82 [place] 142 QRS 96 QTC unknown) of 436. Patient has diffuse ST elevation (unknown) (no (unknown) (unknown) Smoking Status: (units (unknown) date) Current every day unknown) smoker (unknown) (no (unknown) (unknown) Social History (units (unknown) date) (Reviewed 12/22/21 @ unknown) 17:01 by Rosette Warner DO) (unknown) (no (unknown) (unknown) Sodium (137-145) (units (unknown) date) mmol/L unknown) (unknown) (no (unknown) (unknown) Sodium 138 (units (unk nown) date) (137-145) mmol/L unknown) (unknown) (no (unknown) (unknown) Sodium Chloride (units (unknown) date) (Normal Saline 0.9%) unknown) 1,000 mls @ 1,000 mls/hr IV BOLUS ONE (unknown) (no (unknown) (unknown) Soft tissues:? No (units (unknown) date) tibiotalar joint unknown) effusion.? Achilles tendon appears normal.? (unknown) (no (unknown) (unknown) Source: patient (units (unknown) date) unknown) (unknown) (no (unknown) (unknown) Stated Complaint: L (unit s (unknown) date) Foot pain/swelling. unknown) Chest pain (unknown) (no (unknown) (unknown) Stop: 12/22/21 (units (unknown) date) 13:07 unknown) (unknown) (no (unknown) (unknown) Stop: 12/22/21 (units (unknown) date) 16:14 unknown) (unknown) (no (unknown) (unknown) Stop: 12/22/21 (units (unknown) date) 17:18 unknown) (unknown) (no (unknown) (unknown) Substance Use Type: (unit s (unknown) date) opiates unknown) (unknown) (no (unknown) (unknown) Surgical changes (units (unknown) date) and devices:? None.? unknown) (unknown) (no (unknown) (unknown) TECHNIQUE:? One (units (unknown) date) view of the chest unknown) was acquired.? (unknown) (no (unknown) (unknown) TECHNIQUE:? Three (units (unknown) date) views of the foot unknown) were acquired.? (unknown) (no (unknown) (unknown) Temperature 98.1 F (units (unknown) date) 12/22/21 10:51 unknown) (unknown) (no (unknown) (unknown) Temperature 98.1 F (units (unknown) date) unknown) (unknown) (no (unknown) (unknown) Temperature (units (un known) date) unknown) (unknown) (no (unknown) (unknown) There is (units (unkno wn) date) unknown) (unknown) (no (unknown) (unknown) This is a (units (unkn own) date) 31-year-old male unknown) with history of IV drug abuse, prior endocarditis, (unknown) (no (unknown) (unknown) This is a (units (unkn own) date) 31-year-old male unknown) with history of endocarditis, multiple hospital (unknown) (no (unknown) (unknown) Time Seen by (units (u nknown) date) Provider: 12/22/21 unknown) 13:41 (unknown) (no (unknown) (unknown) Total Bilirubin (units (unknown) date) (0.2-1.3) mg/dL unknown) (unknown) (no (unknown) (unknown) Total Bilirubin 0.2 (unit s (unknown) date) (0.2-1.3) mg/dL unknown) (unknown) (no (unknown) (unknown) Total Protein (units ( unknown) date) (6.3-8.2) g/dL unknown) (unknown) (no (unknown) (unknown) Total Protein 6.1 L (unit s (unknown) date) (6.3-8.2) g/dL unknown) (unknown) (no (unknown) (unknown) Vancomycin (units (unk nown) date) HCl/Dextrose unknown) (Vancomycin) 1,500 mg in 300 mls @ 200 mls/hr IV NOW (unknown) (no (unknown) (unknown) Vital Signs - 8 hr (units (unknown) date) unknown) (unknown) (no (unknown) (unknown) Vital Signs (units (un known) date) unknown) (unknown) (no (unknown) (unknown) Vital signs: (units (u nknown) date) unknown) (unknown) (no (unknown) (unknown) WBC (4.5-11.0) (units (unknown) date) X103/uL unknown) (unknown) (no (unknown) (unknown) WBC 6.5 (4.5-11.0) (units (unknown) date) X103/uL unknown) (unknown) (no (unknown) (unknown) XR chest 1V Stat (units (unknown) date) unknown) (unknown) (no (unknown) (unknown) XR foot LT min 3V (units (unknown) date) Stat unknown) (unknown) (no (unknown) (unknown) XRay Report (units (un known) date) unknown) (unknown) (no (unknown) (unknown) [Embedded Image Not (unit s (unknown) date) Available] unknown) (unknown) (no (unknown) (unknown) able to obtain (units (unknown) date) records patient was unknown) had an MRI that shows no features of (unknown) (no (unknown) (unknown) abscess in the (units (unknown) date) superficial soft unknown) tissues and small joint effusion at the great (unknown) (no (unknown) (unknown) aerosol inhaler (units (unknown) date) (Ventolin HFA) unknown) (unknown) (no (unknown) (unknown) albuterol sulfate (units (unknown) date) 90 mcg/actuation unknown) 0.09 mg IH Q4H ##1 08/24/11 (unknown) (no (unknown) (unknown) albuterol sulfate (units (unknown) date) [Ventolin HFA] 90 unknown) MCG/PUFF HFA aerosol inhaler (unknown) (no (unknown) (unknown) although unlikely (units (unknown) date) to change unknown) management. EKG shows some diffuse ST elevation and (unknown) (no (unknown) (unknown) and below (units (unkn own) date) unknown) (unknown) (no (unknown) (unknown) and procalcitonin. (units (unknown) date) Patient is denying unknown) any chest pain or shortness of breath or (unknown) (no (unknown) (unknown) antibiotics. (units (u nknown) date) Patient had MRI of unknown) the foot which was negative for osteomyelitis (unknown) (no (unknown) (unknown) appear (units (unkno wn) date) unknown) (unknown) (no (unknown) (unknown) be in mild (units (unk nown) date) distress. unknown) (unknown) (no (unknown) (unknown) better hospital but (unit s (unknown) date) he is never been unknown) here before. When we discussed what (unknown) (no (unknown) (unknown) bilateral lower (units (unknown) date) extremities. With 2+ unknown) dorsalis pedis bilaterally. Has some (unknown) (no (unknown) (unknown) brought him to the (units (unknown) date) area he states he unknown) knows people locally. He defers meeting (unknown) (no (unknown) (unknown) but denies frequent (unit s (unknown) date) or heavy use. unknown) Patient states he left the hospital because (unknown) (no (unknown) (unknown) but showed possible (unit s (unknown) date) small subcutaneous unknown) abscess with stress fracture and some (unknown) (no (unknown) (unknown) calcaneus near the (units (unknown) date) lateral wall of the unknown) calcaneus and a subtle sclerotic line (unknown) (no (unknown) (unknown) cefazolin [From (units (unknown) date) Ancef] Allergy Hives unknown) Verified 12/22/21 13:21 (unknown) (no (unknown) (unknown) citalopram 20 mg (units (unknown) date) tablet (Celexa) 40 unknown) mg PO QDAY ##60 03/16/11 (unknown) (no (unknown) (unknown) citalopram [Celexa] (unit s (unknown) date) 20 MG tablet unknown) (unknown) (no (unknown) (unknown) codeine Allergy (units (unknown) date) Rash Verified unknown) 12/22/21 13:27 (unknown) (no (unknown) (unknown) consistent with a (units (unknown) date) small stress unknown) fracture in the calcaneus the fracture line is (unknown) (no (unknown) (unknown) currently denies (units (unknown) date) chest pain, unknown) shortness of breath, no nausea or vomiting, no (unknown) (no (unknown) (unknown) deltoid ligament (units (unknown) date) and ATFL and CFL.? unknown) There is also increased fluid at the (unknown) (no (unknown) (unknown) enhancing fluid (units (unknown) date) collection along the unknown) plantar aspect of the 2nd metatarsal in the (unknown) (no (unknown) (unknown) extremities, full (units (unknown) date) range of motion unknown) (unknown) (no (unknown) (unknown) fluticasone (units (un known) date) propionate 110 1 unknown) puff INH BIDRT ##1 03/02/11 (unknown) (no (unknown) (unknown) fluticasone (units (un known) date) propionate [Flovent unknown) HFA] 12 GM HFA aerosol inhaler (unknown) (no (unknown) (unknown) has used IV drugs (units (unknown) date) remotely, initially unknown) denies any illicit substances but then (unknown) (no (unknown) (unknown) he did not want to (units (unknown) date) be there anymore. He unknown) came here because he thinks it is a (unknown) (no (unknown) (unknown) hepatitis-C, asthma (unit s (unknown) date) and bipolar unknown) disorder. Patient states he had an injury to (unknown) (no (unknown) (unknown) his left foot at (units (unknown) date) some time unclear unknown) about the timing. He was at [facility] he (unknown) (no (unknown) (unknown) hydrocodone AdvReac (unit s (unknown) date) Vomiting Verified unknown) 12/22/21 13:27 (unknown) (no (unknown) (unknown) in 2 3 AVF as well (units (unknown) date) as Q-wave present. unknown) Patient has some mild elevation in (unknown) (no (unknown) (unknown) in upper and lower (units (unknown) date) extremities unknown) (unknown) (no (unknown) (unknown) incomplete, chronic (unit s (unknown) date) avulsive injury at unknown) the tip of the fibula and small rim (unknown) (no (unknown) (unknown) lab work initially (units (unknown) date) had chest x-ray, unknown) foot x-ray is a quick screening exam (unknown) (no (unknown) (unknown) lateral leads as (units (unknown) date) well. No reciprocal unknown) changes appreciated. (unknown) (no (unknown) (unknown) ligamentous change. (unit s (unknown) date) Podiatry was being unknown) consulted but had not seen the patient (unknown) (no (unknown) (unknown) ligamentous injury (units (unknown) date) that appeared old. unknown) Patient denies fevers, denies chills, he (unknown) (no (unknown) (unknown) masses noted, no (units (unknown) date) hepatosplenomegaly unknown) (unknown) (no (unknown) (unknown) mcg/actuation HFA (units (unknown) date) aerosol inhaler unknown) (unknown) (no (unknown) (unknown) methamphetamine (units (unknown) date) Allergy Verified unknown) 12/22/21 13:27 (unknown) (no (unknown) (unknown) morphine Allergy (units (unknown) date) Hallucinati Verified unknown) 12/22/21 13:27 (unknown) (no (unknown) (unknown) movements are (units ( unknown) date) intact, nares are unknown) clear, moist mucous membranes. (unknown) (no (unknown) (unknown) necessity of (units (u nknown) date) obtaining blood work unknown) to evaluate CBC, ESR, CRP, troponin, lactate (unknown) (no (unknown) (unknown) ng (units (unkno wn) date) unknown) (unknown) (no (unknown) (unknown) no radiodense (units ( unknown) date) foreign body or unknown) suspicious soft tissue gas. (unknown) (no (unknown) (unknown) on the left. No (units (unknown) date) fluctuance, slightly unknown) warm, there is no fluid collection easily (unknown) (no (unknown) (unknown) osteomyelitis but (units (unknown) date) did show a small unknown) subcutaneous abscess with stress fracture and (unknown) (no (unknown) (unknown) other GI or urinary (unit s (unknown) date) symptoms. Patient unknown) does answer questions but is not (unknown) (no (unknown) (unknown) other symptoms (units (unknown) date) consistent with unknown) endocarditis. (unknown) (no (unknown) (unknown) outside MRI foot: (units (unknown) date) unknown) (unknown) (no (unknown) (unknown) palpable. Patient (units (unknown) date) his mildly tender to unknown) touch. Cap refills less than 2 seconds (unknown) (no (unknown) (unknown) particularly (units (u nknown) date) forthcoming. He unknown) denies medical issues. He denies needing or (unknown) (no (unknown) (unknown) peroneal tendon (units (unknown) date) sheath compatible unknown) with tenosynovitis. (unknown) (no (unknown) (unknown) shrimp Allergy (units (unknown) date) Hives Verified unknown) 12/22/21 13:27 (unknown) (no (unknown) (unknown) small abrasions (units (unknown) date) that do not appear unknown) infected over the dorsum of the foot. (unknown) (no (unknown) (unknown) states he is used (units (unknown) date) methamphetamines. He unknown) does smoke tobacco. States uses alcohol (unknown) (no (unknown) (unknown) states he left he (units (unknown) date) initially is very unknown) reluctant to share whether he left Against (unknown) (no (unknown) (unknown) subcutaneous fat (units (unknown) date) measuring 7 x 7 x 10 unknown) mm consistent with a small subcutaneous (unknown) (no (unknown) (unknown) supposed to take (units (unknown) date) any medications. unknown) States he had surgery on his hand. States he (unknown) (no (unknown) (unknown) symmetrically, no (units (unknown) date) tachypnea accessory unknown) muscle use (unknown) (no (unknown) (unknown) tobacco type: (units ( unknown) date) cigarettes unknown) (unknown) (no (unknown) (unknown) toe MTP, no (units (un known) date) findings of unknown) synovitis.? There are some chronic tears of the deep (unknown) (no (unknown) (unknown) unremarkable.? (units (unknown) date) unknown) (unknown) (no (unknown) (unknown) visits sounds like (units (unknown) date) he may not have been unknown) fully treated. Was recently at (unknown) (no (unknown) (unknown) [facility] (units (unknown) date) Verified 12/22/21 unknown) 13:27 (unknown) (no (unknown) (unknown) when he left. (units ( unknown) date) Presents here he unknown) does not appear to be septic, patient refused (unknown) (no (unknown) (unknown) with his IV drug (units (unknown) date) history and unknown) endocarditis history discussed with patient the (unknown) (no (unknown) (unknown) with our social (units (unknown) date) worker today. unknown) Result panel 13 (unknown) (no (unknown) (unknown) (no value) (units (unk nown) date) unknown) (unknown) (no (unknown) (unknown) <Electronically (units (unknown) date) signed by Rosette Zamudio unknown) Sara Warner> (unknown) (no (unknown) (unknown) (Flovent HFA) (units ( unknown) date) unknown) (unknown) (no (unknown) (unknown) 0.09 mg IH Q4H Qty: (unit s (unknown) date) 1 3RF unknown) (unknown) (no (unknown) (unknown) 12/22/21 12/22/21 (units (unknown) date) 12/22/21 Range/Units unknown) (unknown) (no (unknown) (unknown) 12/22/21 12/22/21 (units (unknown) date) Range/Units unknown) (unknown) (no (unknown) (unknown) 12/22/21 13:05 (units (unknown) date) unknown) (unknown) (no (unknown) (unknown) 12/22/21 15:49 (units (unknown) date) unknown) (unknown) (no (unknown) (unknown) 12/22/21 16:35 (units (unknown) date) unknown) (unknown) (no (unknown) (unknown) 12/22/21 16:42 (units (unknown) date) unknown) (unknown) (no (unknown) (unknown) 12/22/21 2042 (units ( unknown) date) unknown) (unknown) (no (unknown) (unknown) 12/22/21 (units (unkno wn) date) unknown) (unknown) (no (unknown) (unknown) 1 puff INH BIDRT (units (unknown) date) Qty: 1 3RF unknown) (unknown) (no (unknown) (unknown) 1 spray Intranasal (units (unknown) date) QDAY Qty: 1 3RF unknown) (unknown) (no (unknown) (unknown) 1164 (units (unkno wn) date) unknown) (unknown) (no (unknown) (unknown) [address] [place] [address] (units (unknown) date) unknown) (unknown) (no (unknown) (unknown) 13:22 12/22/21 (units (unknown) date) unknown) (unknown) (no (unknown) (unknown) 13:30 12/22/21 (units (unknown) date) unknown) (unknown) (no (unknown) (unknown) 13:30 (units (unkno wn) date) unknown) (unknown) (no (unknown) (unknown) 14:00 12/22/21 (units (unknown) date) unknown) (unknown) (no (unknown) (unknown) 14:01 12/22/21 (units (unknown) date) unknown) (unknown) (no (unknown) (unknown) 14:01 (units (unkno wn) date) unknown) (unknown) (no (unknown) (unknown) 14:30 12/22/21 (units (unknown) date) unknown) (unknown) (no (unknown) (unknown) 15:00 12/22/21 (units (unknown) date) unknown) (unknown) (no (unknown) (unknown) 15:00 (units (unkno wn) date) unknown) (unknown) (no (unknown) (unknown) 15:30 12/22/21 (units (unknown) date) unknown) (unknown) (no (unknown) (unknown) 15:30 (units (unkno wn) date) unknown) (unknown) (no (unknown) (unknown) 16:00 12/22/21 (units (unknown) date) unknown) (unknown) (no (unknown) (unknown) 16:30 (units (unkno wn) date) unknown) (unknown) (no (unknown) (unknown) 16:35 16:35 16:35 (units (unknown) date) unknown) (unknown) (no (unknown) (unknown) 16:35 16:35 (units (un known) date) unknown) (unknown) (no (unknown) (unknown) 16:38 12/22/21 (units (unknown) date) unknown) (unknown) (no (unknown) (unknown) 40 mg PO QDAY Qty: (units (unknown) date) 60 1RF unknown) (unknown) (no (unknown) (unknown) ? (units (unkno wn) date) unknown) (unknown) (no (unknown) (unknown) ABD:bowel sounds (units (unknown) date) normal, soft, unknown) non-tender, no guarding, rebound, rigidity, no (unknown) (no (unknown) (unknown) ALT (<50) IU/L (units (unknown) date) unknown) (unknown) (no (unknown) (unknown) ALT 23 (<50) IU/L (units (unknown) date) unknown) (unknown) (no (unknown) (unknown) AST (17-59) IU/L (units (unknown) date) unknown) (unknown) (no (unknown) (unknown) AST 31 (17-59) IU/L (unit s (unknown) date) unknown) (unknown) (no (unknown) (unknown) Accession Number: (units (unknown) date) [id number] ?? unknown) (unknown) (no (unknown) (unknown) Accession Number: (units (unknown) date) [id number] ?? unknown) (unknown) (no (unknown) (unknown) Acct:[id number] (units (unknown) date) unknown) (unknown) (no (unknown) (unknown) Admin: 12/22/21 (units (unknown) date) 15:16 Dose: 1,000 unknown) mls/hr (unknown) (no (unknown) (unknown) Against Medical (units (unknown) date) Advice prior to me unknown) discussing with the locall orthopedic surgeon (unknown) (no (unknown) (unknown) Age/Sex: 31 / M (units (unknown) date) unknown) (unknown) (no (unknown) (unknown) Albumin (3.5-5.0) (units (unknown) date) g/dL unknown) (unknown) (no (unknown) (unknown) Albumin 3.1 L (units ( unknown) date) (3.5-5.0) g/dL unknown) (unknown) (no (unknown) (unknown) Albumin/Globulin (units (unknown) date) Ratio (1.0-2.8) unknown) (unknown) (no (unknown) (unknown) Albumin/Globulin (units (unknown) date) Ratio 1.0 (1.0-2.8) unknown) (unknown) (no (unknown) (unknown) Alkaline (units (unkno wn) date) Phosphatase (38-126) unknown) U/L (unknown) (no (unknown) (unknown) Alkaline (units (unkno wn) date) Phosphatase 76 unknown) (38-126) U/L (unknown) (no (unknown) (unknown) Allergies (units (unkn own) date) unknown) (unknown) (no (unknown) (unknown) Allergy/AdvReac (units (unknown) date) Type Severity unknown) Reaction Status Date / Time (unknown) (no (unknown) (unknown) [place] [id number] (unit s (unknown) date) unknown) (unknown) (no (unknown) (unknown) Approved by: (units (u nknown) date) Linda Gaspar M.D. unknown) on 12/22/2021 at 16:42?? (unknown) (no (unknown) (unknown) Approved by: Sissy (unit s (unknown) date) Robert Zhao on unknown) 12/22/2021 at 13:15?? (unknown) (no (unknown) (unknown) Attestation: I (units (unknown) date) personally reviewed unknown) and interpreted this ECG as follows: (unknown) (no (unknown) (unknown) BUN (9-20) mg/dL (units (unknown) date) unknown) (unknown) (no (unknown) (unknown) BUN 17 (9-20) mg/dL (unit s (unknown) date) unknown) (unknown) (no (unknown) (unknown) BUN/Creatinine (units (unknown) date) Ratio (6-22) unknown) (unknown) (no (unknown) (unknown) BUN/Creatinine (units (unknown) date) Ratio 24.3 H (6-22) unknown) (unknown) (no (unknown) (unknown) Baso # (Auto) (units ( unknown) date) (0-100) /uL unknown) (unknown) (no (unknown) (unknown) Baso # (Auto) 0 (units (unknown) date) (0-100) /uL unknown) (unknown) (no (unknown) (unknown) Baso % (Auto) (0-2) (unit s (unknown) date) % unknown) (unknown) (no (unknown) (unknown) Baso % (Auto) 0.7 (units (unknown) date) (0-2) % unknown) (unknown) (no (unknown) (unknown) Blood Culture Stat (units (unknown) date) unknown) (unknown) (no (unknown) (unknown) Blood Pressure (units (unknown) date) 116/53 L unknown) (unknown) (no (unknown) (unknown) Blood Pressure (units (unknown) date) 117/61 unknown) (unknown) (no (unknown) (unknown) Blood Pressure (units (unknown) date) 118/56 L 12/22/21 unknown) 10:51 (unknown) (no (unknown) (unknown) Blood Pressure (units (unknown) date) 119/68 unknown) (unknown) (no (unknown) (unknown) Blood Pressure (units (unknown) date) 124/56 L unknown) (unknown) (no (unknown) (unknown) Blood Pressure (units (unknown) date) 132/66 unknown) (unknown) (no (unknown) (unknown) Bones and chest (units (unknown) date) wall:? No suspicious unknown) bony lesions.? Overlying soft tissues (unknown) (no (unknown) (unknown) Bones:? No (units (unk nown) date) fractures or unknown) dislocations.? No suspicious bony lesions.? (unknown) (no (unknown) (unknown) C-Reactive Protein (units (unknown) date) (<1.0) mg/dL unknown) (unknown) (no (unknown) (unknown) C-Reactive Protein (units (unknown) date) 2.0 H (<1.0) mg/dL unknown) (unknown) (no (unknown) (unknown) CBC Auto Diff (units ( unknown) date) [Complete Blood unknown) Count AUTO DIFF] Stat (unknown) (no (unknown) (unknown) CMP [Comprehensive (units (unknown) date) Metabolic Panel] unknown) Stat (unknown) (no (unknown) (unknown) [facility], CR, CHEST unknown) 2 VIEW, 07/06/2010, 12:38. (unknown) (no (unknown) (unknown) COMPARISON:? None. (units (unknown) date) unknown) (unknown) (no (unknown) (unknown) CRP [C-Reactive (units (unknown) date) Protein Quant] Stat unknown) (unknown) (no (unknown) (unknown) Calcium (8.4-10.2) (units (unknown) date) mg/dL unknown) (unknown) (no (unknown) (unknown) Calcium 7.9 L (units ( unknown) date) (8.4-10.2) mg/dL unknown) (unknown) (no (unknown) (unknown) Carbon Dioxide (units (unknown) date) (22-32) mmol/L unknown) (unknown) (no (unknown) (unknown) Carbon Dioxide 30 (units (unknown) date) (22-32) mmol/L unknown) (unknown) (no (unknown) (unknown) Chest X-Ray (units (un known) date) (Signed) unknown) (unknown) (no (unknown) (unknown) Chest x-ray: (units (u nknown) date) unknown) (unknown) (no (unknown) (unknown) Chief Complaint: (units (unknown) date) Chest Pain unknown) (unknown) (no (unknown) (unknown) Chloride (98-107) (units (unknown) date) mmol/L unknown) (unknown) (no (unknown) (unknown) Chloride 103 (units (u nknown) date) (98-107) mmol/L unknown) (unknown) (no (unknown) (unknown) Clinical (units (unkno wn) date) Impression: unknown) (unknown) (no (unknown) (unknown) Close (units (unkno wn) date) unknown) (unknown) (no (unknown) (unknown) Consultation #1: (units (unknown) date) unknown) (unknown) (no (unknown) (unknown) Consultations (units ( unknown) date) unknown) (unknown) (no (unknown) (unknown) Course (units (unkno wn) date) unknown) (unknown) (no (unknown) (unknown) Creatinine (units (unk nown) date) (0.66-1.25) mg/dL unknown) (unknown) (no (unknown) (unknown) Creatinine 0.70 (units (unknown) date) (0.66-1.25) mg/dL unknown) (unknown) (no (unknown) (unknown) : 1990 (units (unknown) date) Acct:[id number] unknown) (unknown) (no (unknown) (unknown) : 1990 (units (unknown) date) unknown) (unknown) (no (unknown) (unknown) Date of MRI 12/20/21 (unit s (unknown) date) @ [facility] unknown) [place]. (unknown) (no (unknown) (unknown) Date of Service: (units (unknown) date) 12/22/21 unknown) (unknown) (no (unknown) (unknown) Departure (units (unkn own) date) unknown) (unknown) (no (unknown) (unknown) Sissy Zhao (units (u nknown) date) unknown) (unknown) (no (unknown) (unknown) Dictated by: (units (u nknown) date) Linda Gaspar M.D. unknown) on 12/22/2021 at 16:41 ? ? (unknown) (no (unknown) (unknown) Dictated by: Sissy (unit s (unknown) date) Robert Zhao on unknown) 12/22/2021 at 13:14 ? ? (unknown) (no (unknown) (unknown) Discharge Plan (units (unknown) date) unknown) (unknown) (no (unknown) (unknown) Discontinued (units (u nknown) date) Medications unknown) (unknown) (no (unknown) (unknown) Documented By: [facility]SD (units (unknown) date) unknown) (unknown) (no (unknown) (unknown) Documented By: AGUSTINS (units (unknown) date) unknown) (unknown) (no (unknown) (unknown) Dr. Nola Skelton, (units (unknown) date) reviewed labs unknown) findings from today, patient's recent MRI (unknown) (no (unknown) (unknown) ECG Data (units (unkno wn) date) unknown) (unknown) (no (unknown) (unknown) ED Orders (units (unkn own) date) unknown) (unknown) (no (unknown) (unknown) EKG-12 Lead Stat (units (unknown) date) unknown) (unknown) (no (unknown) (unknown) ER Physician: (units ( unknown) date) Rosette Warner D.O. unknown) (unknown) (no (unknown) (unknown) ESR (0-15) MM/HR (units (unknown) date) unknown) (unknown) (no (unknown) (unknown) ESR 6 (0-15) MM/HR (units (unknown) date) unknown) (unknown) (no (unknown) (unknown) ESR [Erythrocyte (units (unknown) date) Sedimentation Rate] unknown) Stat (unknown) (no (unknown) (unknown) Emergency Report (units (unknown) date) unknown) (unknown) (no (unknown) (unknown) Eos # (Auto) (units (u nknown) date) (0-450) /uL unknown) (unknown) (no (unknown) (unknown) Eos # (Auto) 300 (units (unknown) date) (0-450) /uL unknown) (unknown) (no (unknown) (unknown) Eos % (Auto) (2-4) (units (unknown) date) % unknown) (unknown) (no (unknown) (unknown) Eos % (Auto) 4.1 H (units (unknown) date) (2-4) % unknown) (unknown) (no (unknown) (unknown) Estimated GFR > 60 (units (unknown) date) (>60) mL/min unknown) (unknown) (no (unknown) (unknown) Estimated GFR (>60) (unit s (unknown) date) mL/min unknown) (unknown) (no (unknown) (unknown) Exam Narrative: (units (unknown) date) unknown) (unknown) (no (unknown) (unknown) Exam (units (unkno wn) date) unknown) (unknown) (no (unknown) (unknown) Extremity x-ray #1: (unit s (unknown) date) unknown) (unknown) (no (unknown) (unknown) FINDINGS:? (units (unk nown) date) unknown) (unknown) (no (unknown) (unknown) Fluticasone (units (un known) date) Propionate (FLONASE) unknown) 1 spray intranasal QDAY ##1 03/02/11 (unknown) (no (unknown) (unknown) Fluticasone (units (un known) date) Propionate (FLONASE) unknown) (unknown) (no (unknown) (unknown) Foot X-Ray (Signed) (unit s (unknown) date) unknown) (unknown) (no (unknown) (unknown) GEN: Thin slightly (units (unknown) date) disheveled male, unknown) alert and oriented x 3, patient appears to (unknown) (no (unknown) (unknown) :No CVA (units (unkn own) date) tenderness unknown) (unknown) (no (unknown) (unknown) General (units (unkno wn) date) unknown) (unknown) (no (unknown) (unknown) Globulin (1.7-4.1) (units (unknown) date) g/dL unknown) (unknown) (no (unknown) (unknown) Globulin 3.0 (units (u nknown) date) (1.7-4.1) g/dL unknown) (unknown) (no (unknown) (unknown) Glucose (70-100) (units (unknown) date) mg/dL unknown) (unknown) (no (unknown) (unknown) Glucose 124 H (units ( unknown) date) (70-100) mg/dL unknown) (unknown) (no (unknown) (unknown) Linda Gaspar (units ( unknown) date) unknown) (unknown) (no (unknown) (unknown) HEART: Regular rate (unit s (unknown) date) and rhythm without unknown) murmur, clicks, rubs. Pulses are equal (unknown) (no (unknown) (unknown) HEENT: Atraumatic, (units (unknown) date) pupils are equal unknown) round reactive to light, extraocular (unknown) (no (unknown) (unknown) HPI - Chest Pain (units (unknown) date) unknown) (unknown) (no (unknown) (unknown) HPI narrative: (units (unknown) date) unknown) (unknown) (no (unknown) (unknown) Hct (41-53) % (units ( unknown) date) unknown) (unknown) (no (unknown) (unknown) Hct 36.5 L (41-53) (units (unknown) date) % unknown) (unknown) (no (unknown) (unknown) Hgb (13.5-17.5) (units (unknown) date) g/dL unknown) (unknown) (no (unknown) (unknown) Hgb 12.6 L (units (unk nown) date) (13.5-17.5) g/dL unknown) (unknown) (no (unknown) (unknown) History of Present (units (unknown) date) Illness unknown) (unknown) (no (unknown) (unknown) IMPRESSION:? Intact (unit s (unknown) date) left foot. unknown) (unknown) (no (unknown) (unknown) IMPRESSION:? No (units (unknown) date) acute process. unknown) (unknown) (no (unknown) (unknown) INDICATIONS:? chest (unit s (unknown) date) pain unknown) (unknown) (no (unknown) (unknown) INDICATIONS:? (units ( unknown) date) infection foot unknown) (unknown) (no (unknown) (unknown) Imaging Data (units (u nknown) date) unknown) (unknown) (no (unknown) (unknown) Initial Vital Signs (unit s (unknown) date) unknown) (unknown) (no (unknown) (unknown) Initial Vital (units ( unknown) date) Signs: unknown) (unknown) (no (unknown) (unknown) Interpretation: (units (unknown) date) unknown) (unknown) (no (unknown) (unknown) [facility] (units (unknown) date) [address] unknown) [place] [address] (unknown) (no (unknown) (unknown) [facility] (units (unknown) date) unknown) (unknown) (no (unknown) (unknown) LUNGS:Lungs clear (units (unknown) date) to auscultation, no unknown) wheezes, rales, crackles, chest moves (unknown) (no (unknown) (unknown) Lab Data (units (unkno wn) date) unknown) (unknown) (no (unknown) (unknown) Lab Results (units (un known) date) unknown) (unknown) (no (unknown) (unknown) Labs: (units (unkno wn) date) unknown) (unknown) (no (unknown) (unknown) Lactate (0.7-2.1) (units (unknown) date) mmol/L unknown) (unknown) (no (unknown) (unknown) Lactate (Lactic (units (unknown) date) Acid) Stat unknown) (unknown) (no (unknown) (unknown) Lactate 1.6 (units (un known) date) (0.7-2.1) mmol/L unknown) (unknown) (no (unknown) (unknown) Last Admin: (units (un known) date) 12/22/21 13:34 Dose: unknown) 21 mg (unknown) (no (unknown) (unknown) Last Admin: (units (un known) date) 12/22/21 16:30 Dose: unknown) Not Given (unknown) (no (unknown) (unknown) Last Infusion: (units (unknown) date) 12/22/21 17:42 Dose: unknown) 0 mls/hr (unknown) (no (unknown) (unknown) Launch?Image (units (u nknown) date) unknown) (unknown) (no (unknown) (unknown) Left against (units (u nknown) date) medical advice unknown) (unknown) (no (unknown) (unknown) Limitations: no (units (unknown) date) limitations unknown) (unknown) (no (unknown) (unknown) Lipase (23-300) U/L (unit s (unknown) date) unknown) (unknown) (no (unknown) (unknown) Lipase 56 (23-300) (units (unknown) date) U/L unknown) (unknown) (no (unknown) (unknown) Lipase Stat (units (un known) date) unknown) (unknown) (no (unknown) (unknown) Loc: ED (units (unkno wn) date) unknown) (unknown) (no (unknown) (unknown) Lungs and pleura:? (units (unknown) date) Lungs are clear.? No unknown) pleural effusions or pneumothorax.? (unknown) (no (unknown) (unknown) Lymph # (Auto) (units (unknown) date) (8923-3159) /uL unknown) (unknown) (no (unknown) (unknown) Lymph # (Auto) 2600 (unit s (unknown) date) (1755-3265) /uL unknown) (unknown) (no (unknown) (unknown) Lymph % (Auto) (units (unknown) date) (25-40) % unknown) (unknown) (no (unknown) (unknown) Lymph % (Auto) 39.2 (unit s (unknown) date) (25-40) % unknown) (unknown) (no (unknown) (unknown) MAG [Magnesium] (units (unknown) date) Stat unknown) (unknown) (no (unknown) (unknown) MCH (26-34) PG (units (unknown) date) unknown) (unknown) (no (unknown) (unknown) MCH 32.7 (26-34) PG (unit s (unknown) date) unknown) (unknown) (no (unknown) (unknown) MCHC (30-36) % (units (unknown) date) unknown) (unknown) (no (unknown) (unknown) MCHC 34.6 (30-36) % (unit s (unknown) date) unknown) (unknown) (no (unknown) (unknown) MCV (80-100) fL (units (unknown) date) unknown) (unknown) (no (unknown) (unknown) MCV 94.5 (80-100) (units (unknown) date) fL unknown) (unknown) (no (unknown) (unknown) MDM - Chest Pain (units (unknown) date) unknown) (unknown) (no (unknown) (unknown) MDM Narrative (units ( unknown) date) unknown) (unknown) (no (unknown) (unknown) MR#: [id number] (units (unknown) date) unknown) (unknown) (no (unknown) (unknown) MSCL: Non-tender, (units (unknown) date) no muscle atrophy, unknown) muscles strength 5/5 upper and lower (unknown) (no (unknown) (unknown) Magnesium (1.6-2.3) (unit s (unknown) date) mg/dL unknown) (unknown) (no (unknown) (unknown) Magnesium 1.6 (units ( unknown) date) (1.6-2.3) mg/dL unknown) (unknown) (no (unknown) (unknown) Mediastinum:? (units ( unknown) date) Mediastinal contours unknown) appear normal.? Heart size is normal.? (unknown) (no (unknown) (unknown) Medical Advice or (units (unknown) date) was discharged but unknown) states there was no plan in place. We are (unknown) (no (unknown) (unknown) Medical decision (units (unknown) date) making narrative: unknown) (unknown) (no (unknown) (unknown) Medication (units (unk nown) date) Instructions unknown) Recorded (unknown) (no (unknown) (unknown) Mode of arrival: (units (unknown) date) Ambulatory unknown) (unknown) (no (unknown) (unknown) [place] # (Auto) (units ( unknown) date) (0-900) /uL unknown) (unknown) (no (unknown) (unknown) [place] # (Auto) 500 (units (unknown) date) (0-900) /uL unknown) (unknown) (no (unknown) (unknown) [place] % (Auto) (units ( unknown) date) (3-14) % unknown) (unknown) (no (unknown) (unknown) [place] % (Auto) 7.8 (units (unknown) date) (3-14) % unknown) (unknown) (no (unknown) (unknown) NEURO:CN 2-12 (units ( unknown) date) intact, sensation unknown) normal (unknown) (no (unknown) (unknown) Narrative (units (unkn own) date) unknown) (unknown) (no (unknown) (unknown) Neut # (Auto) (units ( unknown) date) (1415-1351) /uL unknown) (unknown) (no (unknown) (unknown) Neut # (Auto) 3200 (units (unknown) date) (6656-0941) /uL unknown) (unknown) (no (unknown) (unknown) Neut % (Auto) (units ( unknown) date) (50-75) % unknown) (unknown) (no (unknown) (unknown) Neut % (Auto) 48.2 (units (unknown) date) L (50-75) % unknown) (unknown) (no (unknown) (unknown) Nicotine (Nicotine (units (unknown) date) 21 Mg Patch) 21 mg unknown) TOP NOW ONE (unknown) (no (unknown) (unknown) No Action (units (unkn own) date) unknown) (unknown) (no (unknown) (unknown) No signs of (units (un known) date) osteomyelitis but unknown) linear edema in the posterior process of the (unknown) (no (unknown) (unknown) ONE (units (unkno wn) date) unknown) (unknown) (no (unknown) (unknown) Ordered: (units (unkno wn) date) unknown) (unknown) (no (unknown) (unknown) Ordering Provider: (units (unknown) date) Rosette Warner D.O. unknown) (unknown) (no (unknown) (unknown) Orders (units (unkno wn) date) unknown) (unknown) (no (unknown) (unknown) Oxygen Delivery (units (unknown) date) Method 12/22/21 unknown) 10:51 (unknown) (no (unknown) (unknown) PROCEDURE:? XR (units (unknown) date) CHEST 1V unknown) (unknown) (no (unknown) (unknown) PROCEDURE:? XR FOOT (unit s (unknown) date) LT MIN 3V unknown) (unknown) (no (unknown) (unknown) Patient (units (unkno wn) date) Disposition: Left unknown) Against Medical Advice (unknown) (no (unknown) (unknown) Patient History (units (unknown) date) unknown) (unknown) (no (unknown) (unknown) Patient has normal (units (unknown) date) sensation unknown) throughout. (unknown) (no (unknown) (unknown) Patient: Carissa Murdock (unit s (unknown) date) J MR#: [id number] unknown) (unknown) (no (unknown) (unknown) Patient: Carissa Murdock (unit s (unknown) date) J unknown) (unknown) (no (unknown) (unknown) Plt Count (150-400) (unit s (unknown) date) X103/uL unknown) (unknown) (no (unknown) (unknown) Plt Count 247 (units ( unknown) date) (150-400) X103/uL unknown) (unknown) (no (unknown) (unknown) Potassium (3.4-5.1) (unit s (unknown) date) mmol/L unknown) (unknown) (no (unknown) (unknown) Potassium 3.6 (units ( unknown) date) (3.4-5.1) mmol/L unknown) (unknown) (no (unknown) (unknown) Prescriptions: (units (unknown) date) unknown) (unknown) (no (unknown) (unknown) Previous Rx's (units ( unknown) date) unknown) (unknown) (no (unknown) (unknown) Procalcitonin (units ( unknown) date) (<0.5) ng/mL unknown) (unknown) (no (unknown) (unknown) Procalcitonin 0.09 (units (unknown) date) (<0.5) ng/mL unknown) (unknown) (no (unknown) (unknown) Procalcitonin Stat (units (unknown) date) unknown) (unknown) (no (unknown) (unknown) Procedure: XR chest (unit s (unknown) date) 1V unknown) (unknown) (no (unknown) (unknown) Procedure: XR foot (units (unknown) date) LT min 3V unknown) (unknown) (no (unknown) (unknown) [facility] yesterday (unit s (unknown) date) left overnight unknown) Against Medical Advice had been receiving IV (unknown) (no (unknown) (unknown) Pulse Oximetry 100 (units (unknown) date) 99 unknown) (unknown) (no (unknown) (unknown) Pulse Oximetry 98 (units (unknown) date) 12/22/21 10:51 unknown) (unknown) (no (unknown) (unknown) Pulse Oximetry 98 (units (unknown) date) 98 unknown) (unknown) (no (unknown) (unknown) Pulse Oximetry 99 (units (unknown) date) 99 unknown) (unknown) (no (unknown) (unknown) Pulse Oximetry 99 (units (unknown) date) unknown) (unknown) (no (unknown) (unknown) Pulse Rate 80 81 (units (unknown) date) unknown) (unknown) (no (unknown) (unknown) Pulse Rate 82 86 (units (unknown) date) unknown) (unknown) (no (unknown) (unknown) Pulse Rate 85 (units ( unknown) date) 12/22/21 10:51 unknown) (unknown) (no (unknown) (unknown) Pulse Rate 86 90 (units (unknown) date) unknown) (unknown) (no (unknown) (unknown) Pulse Rate 91 H 86 (units (unknown) date) unknown) (unknown) (no (unknown) (unknown) Pulse Rate 97 H 89 (units (unknown) date) unknown) (unknown) (no (unknown) (unknown) RBC (4.5-5.9) (units ( unknown) date) X106/uL unknown) (unknown) (no (unknown) (unknown) RBC 3.86 L (units (unk nown) date) (4.5-5.9) X106/uL unknown) (unknown) (no (unknown) (unknown) RDW (11.6-14.8) % (units (unknown) date) unknown) (unknown) (no (unknown) (unknown) RDW 13.3 (units (unkno wn) date) (11.6-14.8) % unknown) (unknown) (no (unknown) (unknown) ROS Unobtainable: (units (unknown) date) All systems reviewed unknown) + are unremarkable except as noted in HPI (unknown) (no (unknown) (unknown) Radiologist's (units ( unknown) date) Impression: unknown) (unknown) (no (unknown) (unknown) Related Data (units (u nknown) date) unknown) (unknown) (no (unknown) (unknown) Respiratory Rate 15 (unit s (unknown) date) unknown) (unknown) (no (unknown) (unknown) Respiratory Rate 18 (unit s (unknown) date) 18 unknown) (unknown) (no (unknown) (unknown) Respiratory Rate 20 (unit s (unknown) date) 12/22/21 10:51 unknown) (unknown) (no (unknown) (unknown) Respiratory Rate 27 (unit s (unknown) date) H 24 unknown) (unknown) (no (unknown) (unknown) Respiratory Rate 27 (unit s (unknown) date) H unknown) (unknown) (no (unknown) (unknown) Respiratory Rate 28 (unit s (unknown) date) H unknown) (unknown) (no (unknown) (unknown) Result diagrams: (units (unknown) date) unknown) (unknown) (no (unknown) (unknown) Review of Systems (units (unknown) date) unknown) (unknown) (no (unknown) (unknown) SKIN: Patient has (units (unknown) date) some mild erythema unknown) over the great toe and follow-up the foot (unknown) (no (unknown) (unknown) Signed By: (units (unk nown) date) unknown) (unknown) (no (unknown) (unknown) Signed (units (unkno wn) date) unknown) (unknown) (no (unknown) (unknown) Sinus rhythm rate (units (unknown) date) 82 [place] 142 QRS 96 QTC unknown) of 436. Patient has diffuse ST elevation (unknown) (no (unknown) (unknown) Smoking Status: (units (unknown) date) Current every day unknown) smoker (unknown) (no (unknown) (unknown) Social History (units (unknown) date) (Reviewed 12/22/21 @ unknown) 17:01 by Rosette Warner DO) (unknown) (no (unknown) (unknown) Sodium (137-145) (units (unknown) date) mmol/L unknown) (unknown) (no (unknown) (unknown) Sodium 138 (units (unk nown) date) (137-145) mmol/L unknown) (unknown) (no (unknown) (unknown) Sodium Chloride (units (unknown) date) (Normal Saline 0.9%) unknown) 1,000 mls @ 1,000 mls/hr IV BOLUS ONE (unknown) (no (unknown) (unknown) Soft tissues:? No (units (unknown) date) tibiotalar joint unknown) effusion.? Achilles tendon appears normal.? (unknown) (no (unknown) (unknown) Source: patient (units (unknown) date) unknown) (unknown) (no (unknown) (unknown) Stand Alone Forms: (units (unknown) date) Against Medical unknown) Advice (unknown) (no (unknown) (unknown) Stated Complaint: L (unit s (unknown) date) Foot pain/swelling. unknown) Chest pain (unknown) (no (unknown) (unknown) Stop: 12/22/21 (units (unknown) date) 13:07 unknown) (unknown) (no (unknown) (unknown) Stop: 12/22/21 (units (unknown) date) 16:14 unknown) (unknown) (no (unknown) (unknown) Stop: 12/22/21 (units (unknown) date) 17:18 unknown) (unknown) (no (unknown) (unknown) Substance Use Type: (unit s (unknown) date) opiates unknown) (unknown) (no (unknown) (unknown) Surgical changes (units (unknown) date) and devices:? None.? unknown) (unknown) (no (unknown) (unknown) TECHNIQUE:? One (units (unknown) date) view of the chest unknown) was acquired.? (unknown) (no (unknown) (unknown) TECHNIQUE:? Three (units (unknown) date) views of the foot unknown) were acquired.? (unknown) (no (unknown) (unknown) Temperature 98.1 F (units (unknown) date) 12/22/21 10:51 unknown) (unknown) (no (unknown) (unknown) There is (units (unkno wn) date) unknown) (unknown) (no (unknown) (unknown) This is a (units (unkn own) date) 31-year-old male unknown) with history of IV drug abuse, prior endocarditis, (unknown) (no (unknown) (unknown) This is a (units (unkn own) date) 31-year-old male unknown) with history of endocarditis, multiple hospital (unknown) (no (unknown) (unknown) Time Seen by (units (u nknown) date) Provider: 12/22/21 unknown) 13:41 (unknown) (no (unknown) (unknown) Total Bilirubin (units (unknown) date) (0.2-1.3) mg/dL unknown) (unknown) (no (unknown) (unknown) Total Bilirubin 0.2 (unit s (unknown) date) (0.2-1.3) mg/dL unknown) (unknown) (no (unknown) (unknown) Total Protein (units ( unknown) date) (6.3-8.2) g/dL unknown) (unknown) (no (unknown) (unknown) Total Protein 6.1 L (unit s (unknown) date) (6.3-8.2) g/dL unknown) (unknown) (no (unknown) (unknown) Vancomycin (units (unk nown) date) HCl/Dextrose unknown) (Vancomycin) 1,500 mg in 300 mls @ 200 mls/hr IV NOW (unknown) (no (unknown) (unknown) Vital Signs - 8 hr (units (unknown) date) unknown) (unknown) (no (unknown) (unknown) Vital Signs (units (un known) date) unknown) (unknown) (no (unknown) (unknown) Vital signs: (units (u nknown) date) unknown) (unknown) (no (unknown) (unknown) WBC (4.5-11.0) (units (unknown) date) X103/uL unknown) (unknown) (no (unknown) (unknown) WBC 6.5 (4.5-11.0) (units (unknown) date) X103/uL unknown) (unknown) (no (unknown) (unknown) XR chest 1V Stat (units (unknown) date) unknown) (unknown) (no (unknown) (unknown) XR foot LT min 3V (units (unknown) date) Stat unknown) (unknown) (no (unknown) (unknown) XRay Report (units (un known) date) unknown) (unknown) (no (unknown) (unknown) [Embedded Image Not (unit s (unknown) date) Available] unknown) (unknown) (no (unknown) (unknown) able to obtain (units (unknown) date) records patient was unknown) had an MRI that shows no features of (unknown) (no (unknown) (unknown) abscess in the (units (unknown) date) superficial soft unknown) tissues and small joint effusion at the great (unknown) (no (unknown) (unknown) aerosol inhaler (units (unknown) date) (Ventolin HFA) unknown) (unknown) (no (unknown) (unknown) albuterol sulfate (units (unknown) date) 90 mcg/actuation unknown) 0.09 mg IH Q4H ##1 08/24/11 (unknown) (no (unknown) (unknown) albuterol sulfate (units (unknown) date) [Ventolin HFA] 90 unknown) MCG/PUFF HFA aerosol inhaler (unknown) (no (unknown) (unknown) although unlikely (units (unknown) date) to change unknown) management. EKG shows some diffuse ST elevation and (unknown) (no (unknown) (unknown) and below (units (unkn own) date) unknown) (unknown) (no (unknown) (unknown) and procalcitonin. (units (unknown) date) Patient is denying unknown) any chest pain or shortness of breath or (unknown) (no (unknown) (unknown) and these (units (unkn own) date) recommendations were unknown) not able to be shared with them. (unknown) (no (unknown) (unknown) antibiotics. (units (u nknown) date) Patient had MRI of unknown) the foot which was negative for osteomyelitis (unknown) (no (unknown) (unknown) appear (units (unkno wn) date) unknown) (unknown) (no (unknown) (unknown) be in mild (units (unk nown) date) distress. unknown) (unknown) (no (unknown) (unknown) better hospital but (unit s (unknown) date) he is never been unknown) here before. When we discussed what (unknown) (no (unknown) (unknown) bilateral lower (units (unknown) date) extremities. With 2+ unknown) dorsalis pedis bilaterally. Has some (unknown) (no (unknown) (unknown) brought him to the (units (unknown) date) area he states he unknown) knows people locally. He defers meeting (unknown) (no (unknown) (unknown) but denies frequent (unit s (unknown) date) or heavy use. unknown) Patient states he left the hospital because (unknown) (no (unknown) (unknown) but showed possible (unit s (unknown) date) small subcutaneous unknown) abscess with stress fracture and some (unknown) (no (unknown) (unknown) calcaneus near the (units (unknown) date) lateral wall of the unknown) calcaneus and a subtle sclerotic line (unknown) (no (unknown) (unknown) cefazolin [From (units (unknown) date) Ancef] Allergy Hives unknown) Verified 12/22/21 13:21 (unknown) (no (unknown) (unknown) citalopram 20 mg (units (unknown) date) tablet (Celexa) 40 unknown) mg PO QDAY ##60 03/16/11 (unknown) (no (unknown) (unknown) citalopram [Celexa] (unit s (unknown) date) 20 MG tablet unknown) (unknown) (no (unknown) (unknown) codeine Allergy (units (unknown) date) Rash Verified unknown) 12/22/21 13:27 (unknown) (no (unknown) (unknown) consistent with a (units (unknown) date) small stress unknown) fracture in the calcaneus the fracture line is (unknown) (no (unknown) (unknown) currently denies (units (unknown) date) chest pain, unknown) shortness of breath, no nausea or vomiting, no (unknown) (no (unknown) (unknown) deltoid ligament (units (unknown) date) and ATFL and CFL.? unknown) There is also increased fluid at the (unknown) (no (unknown) (unknown) elevated CRP. (units ( unknown) date) Patient's MRI at unknown) outside facility in the last several days was (unknown) (no (unknown) (unknown) enhancing fluid (units (unknown) date) collection along the unknown) plantar aspect of the 2nd metatarsal in the (unknown) (no (unknown) (unknown) extremities, full (units (unknown) date) range of motion unknown) (unknown) (no (unknown) (unknown) findings and exam (units (unknown) date) findings with unknown) patient's past medical history. She recommends (unknown) (no (unknown) (unknown) fluticasone (units (un known) date) propionate 110 1 unknown) puff INH BIDRT ##1 03/02/11 (unknown) (no (unknown) (unknown) fluticasone (units (un known) date) propionate [Flovent unknown) HFA] 12 GM HFA aerosol inhaler (unknown) (no (unknown) (unknown) has used IV drugs (units (unknown) date) remotely, initially unknown) denies any illicit substances but then (unknown) (no (unknown) (unknown) he did not want to (units (unknown) date) be there anymore. He unknown) came here because he thinks it is a (unknown) (no (unknown) (unknown) hepatitis-C, asthma (unit s (unknown) date) and bipolar unknown) disorder. Patient states he had an injury to (unknown) (no (unknown) (unknown) his left foot at (units (unknown) date) some time unclear unknown) about the timing. He was at [facility] he (unknown) (no (unknown) (unknown) hydrocodone AdvReac (unit s (unknown) date) Vomiting Verified unknown) 12/22/21 13:27 (unknown) (no (unknown) (unknown) in 2 3 AVF as well (units (unknown) date) as Q-wave present. unknown) Patient has some mild elevation in (unknown) (no (unknown) (unknown) in upper and lower (units (unknown) date) extremities unknown) (unknown) (no (unknown) (unknown) incomplete, chronic (unit s (unknown) date) avulsive injury at unknown) the tip of the fibula and small rim (unknown) (no (unknown) (unknown) injuries but no (units (unknown) date) other significant unknown) change. Discussed with our local orthopedic (unknown) (no (unknown) (unknown) lab work initially (units (unknown) date) had chest x-ray, unknown) foot x-ray is a quick screening exam (unknown) (no (unknown) (unknown) lateral leads as (units (unknown) date) well. No reciprocal unknown) changes appreciated. (unknown) (no (unknown) (unknown) ligamentous change. (unit s (unknown) date) Podiatry was being unknown) consulted but had not seen the patient (unknown) (no (unknown) (unknown) ligamentous injury (units (unknown) date) that appeared old. unknown) Patient denies fevers, denies chills, he (unknown) (no (unknown) (unknown) masses noted, no (units (unknown) date) hepatosplenomegaly unknown) (unknown) (no (unknown) (unknown) mcg/actuation HFA (units (unknown) date) aerosol inhaler unknown) (unknown) (no (unknown) (unknown) methamphetamine (units (unknown) date) Allergy Verified unknown) 12/22/21 13:27 (unknown) (no (unknown) (unknown) morphine Allergy (units (unknown) date) Hallucinati Verified unknown) 12/22/21 13:27 (unknown) (no (unknown) (unknown) movements are (units ( unknown) date) intact, nares are unknown) clear, moist mucous membranes. (unknown) (no (unknown) (unknown) necessity of (units (u nknown) date) obtaining blood work unknown) to evaluate CBC, ESR, CRP, troponin, lactate (unknown) (no (unknown) (unknown) negative for (units (u nknown) date) osteomyelitis showed unknown) a stress fracture and some ligamentous (unknown) (no (unknown) (unknown) ng (units (unkno wn) date) unknown) (unknown) (no (unknown) (unknown) no radiodense (units ( unknown) date) foreign body or unknown) suspicious soft tissue gas. (unknown) (no (unknown) (unknown) on the left. No (units (unknown) date) fluctuance, slightly unknown) warm, there is no fluid collection easily (unknown) (no (unknown) (unknown) oral antibiotics (units (unknown) date) follow-up outpatient unknown) with them in the office for further (unknown) (no (unknown) (unknown) osteomyelitis but (units (unknown) date) did show a small unknown) subcutaneous abscess with stress fracture and (unknown) (no (unknown) (unknown) other GI or urinary (unit s (unknown) date) symptoms. Patient unknown) does answer questions but is not (unknown) (no (unknown) (unknown) other symptoms (units (unknown) date) consistent with unknown) endocarditis. Labs overall reassuring although (unknown) (no (unknown) (unknown) outside MRI foot: (units (unknown) date) unknown) (unknown) (no (unknown) (unknown) palpable. Patient (units (unknown) date) his mildly tender to unknown) touch. Cap refills less than 2 seconds (unknown) (no (unknown) (unknown) particularly (units (u nknown) date) forthcoming. He unknown) denies medical issues. He denies needing or (unknown) (no (unknown) (unknown) peroneal tendon (units (unknown) date) sheath compatible unknown) with tenosynovitis. (unknown) (no (unknown) (unknown) shrimp Allergy (units (unknown) date) Hives Verified unknown) 12/22/21 13:27 (unknown) (no (unknown) (unknown) small abrasions (units (unknown) date) that do not appear unknown) infected over the dorsum of the foot. (unknown) (no (unknown) (unknown) states he is used (units (unknown) date) methamphetamines. He unknown) does smoke tobacco. States uses alcohol (unknown) (no (unknown) (unknown) states he left he (units (unknown) date) initially is very unknown) reluctant to share whether he left Against (unknown) (no (unknown) (unknown) subcutaneous fat (units (unknown) date) measuring 7 x 7 x 10 unknown) mm consistent with a small subcutaneous (unknown) (no (unknown) (unknown) supposed to take (units (unknown) date) any medications. unknown) States he had surgery on his hand. States he (unknown) (no (unknown) (unknown) surgeon who (units (un known) date) recommends oral unknown) antibiotics and outpatient follow-up. Patient left (unknown) (no (unknown) (unknown) symmetrically, no (units (unknown) date) tachypnea accessory unknown) muscle use (unknown) (no (unknown) (unknown) tobacco type: (units ( unknown) date) cigarettes unknown) (unknown) (no (unknown) (unknown) toe MTP, no (units (un known) date) findings of unknown) synovitis.? There are some chronic tears of the deep (unknown) (no (unknown) (unknown) treatment. (units (unk nown) date) unknown) (unknown) (no (unknown) (unknown) unremarkable.? (units (unknown) date) unknown) (unknown) (no (unknown) (unknown) visits sounds like (units (unknown) date) he may not have been unknown) fully treated. Was recently at (unknown) (no (unknown) (unknown) [facility] (units (unknown) date) Verified 12/22/21 unknown) 13:27 (unknown) (no (unknown) (unknown) when he left. (units ( unknown) date) Presents here he unknown) does not appear to be septic, patient refused (unknown) (no (unknown) (unknown) with his IV drug (units (unknown) date) history and unknown) endocarditis history discussed with patient the (unknown) (no (unknown) (unknown) with our social (units (unknown) date) worker today. unknown) Result panel 14 (unknown) (no (unknown) (unknown) (no value) (units (unk nown) date) unknown) (unknown) (no (unknown) (unknown) (Flovent HFA) (units ( unknown) date) unknown) (unknown) (no (unknown) (unknown) 0.09 mg IH Q4H (units (unknown) date) Qty: 1 3RF unknown) (unknown) (no (unknown) (unknown) 12/22/21 (units (unkno wn) date) unknown) (unknown) (no (unknown) (unknown) 1 puff INH BIDRT (units (unknown) date) Qty: 1 3RF unknown) (unknown) (no (unknown) (unknown) 1 spray (units (unkno wn) date) Intranasal QDAY unknown) Qty: 1 3RF (unknown) (no (unknown) (unknown) 1164 (units (unkno wn) date) unknown) (unknown) (no (unknown) (unknown) 19:07 (units (unkno wn) date) unknown) (unknown) (no (unknown) (unknown) 40 mg PO QDAY (units ( unknown) date) Qty: 60 1RF unknown) (unknown) (no (unknown) (unknown) Age/Sex: 31 / M (units (unknown) date) unknown) (unknown) (no (unknown) (unknown) Allergies (units (unkn own) date) unknown) (unknown) (no (unknown) (unknown) Allergy/AdvReac (units (unknown) date) Type Severity unknown) Reaction Status Date / Time (unknown) (no (unknown) (unknown) Blood Pressure (units (unknown) date) 118/66 12/22/21 unknown) 19:07 (unknown) (no (unknown) (unknown) Blood Pressure (units (unknown) date) unknown) (unknown) (no (unknown) (unknown) Chief Complaint: (units (unknown) date) Recheck/Abnormal unknown) Lab/Rx (unknown) (no (unknown) (unknown) Course (units (unkno wn) date) unknown) (unknown) (no (unknown) (unknown) : 1990 (units (unknown) date) Acct:[id number] unknown) (unknown) (no (unknown) (unknown) Date of Service: (units (unknown) date) 12/22/21 unknown) (unknown) (no (unknown) (unknown) Departure (units (unkn own) date) unknown) (unknown) (no (unknown) (unknown) Discharge Plan (units (unknown) date) unknown) (unknown) (no (unknown) (unknown) ER Physician: (units ( unknown) date) Sudheer Mendes unknown) D.O. (unknown) (no (unknown) (unknown) Emergency Report (units (unknown) date) unknown) (unknown) (no (unknown) (unknown) Exam (units (unkno wn) date) unknown) (unknown) (no (unknown) (unknown) Fluticasone (units (un known) date) Propionate unknown) (FLONASE) 1 spray intranasal QDAY ##1 03/02/11 (unknown) (no (unknown) (unknown) Fluticasone (units (un known) date) Propionate unknown) (FLONASE) (unknown) (no (unknown) (unknown) General (units (unkno wn) date) unknown) (unknown) (no (unknown) (unknown) HPI - (units (unkno wn) date) Recheck/Abnormal unknown) Lab/Rx (unknown) (no (unknown) (unknown) Initial Vital (units ( unknown) date) Signs unknown) (unknown) (no (unknown) (unknown) Initial Vital (units ( unknown) date) Signs: unknown) (unknown) (no (unknown) (unknown) [facility] (units (unknown) date) [address] [place] [address] Street unknown) [place] [address] (unknown) (no (unknown) (unknown) Medication (units (unk nown) date) Instructions unknown) Recorded (unknown) (no (unknown) (unknown) Mode of arrival: (units (unknown) date) Ambulatory unknown) (unknown) (no (unknown) (unknown) No Action (units (unkn own) date) unknown) (unknown) (no (unknown) (unknown) Oxygen Delivery (units (unknown) date) Method 12/22/21 unknown) 19:07 (unknown) (no (unknown) (unknown) Oxygen Delivery (units (unknown) date) Method Room Air unknown) (unknown) (no (unknown) (unknown) Patient History (units (unknown) date) unknown) (unknown) (no (unknown) (unknown) Patient: (units (unkno wn) date) Carissa Murdock MR#: unknown) [id number] (unknown) (no (unknown) (unknown) Prescriptions: (units (unknown) date) unknown) (unknown) (no (unknown) (unknown) Previous Rx's (units ( unknown) date) unknown) (unknown) (no (unknown) (unknown) Pulse Oximetry 98 (units (unknown) date) 12/22/21 19:07 unknown) (unknown) (no (unknown) (unknown) Pulse Oximetry 98 (units (unknown) date) unknown) (unknown) (no (unknown) (unknown) Pulse Rate 90 (units ( unknown) date) 12/22/21 19:07 unknown) (unknown) (no (unknown) (unknown) Pulse Rate 90 (units ( unknown) date) unknown) (unknown) (no (unknown) (unknown) Related Data (units (u nknown) date) unknown) (unknown) (no (unknown) (unknown) Respiratory Rate (units (unknown) date) 20 12/22/21 19:07 unknown) (unknown) (no (unknown) (unknown) Respiratory Rate (units (unknown) date) 20 unknown) (unknown) (no (unknown) (unknown) Signed By: (units (unk nown) date) unknown) (unknown) (no (unknown) (unknown) Smoking Status: (units (unknown) date) Current every day unknown) smoker (unknown) (no (unknown) (unknown) Social History (units (unknown) date) (Reviewed 12/22/21 unknown) @ 17:01 by Rosette Warner DO) (unknown) (no (unknown) (unknown) Source: patient (units (unknown) date) unknown) (unknown) (no (unknown) (unknown) Stated Complaint: (units (unknown) date) INFECTION OF LEFT unknown) FOOT (unknown) (no (unknown) (unknown) Substance Use (units ( unknown) date) Type: opiates unknown) (unknown) (no (unknown) (unknown) Temperature 98.5 (units (unknown) date) F 12/22/21 19:07 unknown) (unknown) (no (unknown) (unknown) Temperature 98.5 (units (unknown) date) F unknown) (unknown) (no (unknown) (unknown) Time Seen by (units (u nknown) date) Provider: 12/22/21 unknown) 20:47 (unknown) (no (unknown) (unknown) Vital Signs - 8 (units (unknown) date) hr unknown) (unknown) (no (unknown) (unknown) Vital Signs (units (un known) date) unknown) (unknown) (no (unknown) (unknown) Vital signs: (units (u nknown) date) unknown) (unknown) (no (unknown) (unknown) aerosol inhaler (units (unknown) date) (Ventolin HFA) unknown) (unknown) (no (unknown) (unknown) albuterol sulfate (units (unknown) date) 90 mcg/actuation unknown) 0.09 mg IH Q4H ##1 08/24/11 (unknown) (no (unknown) (unknown) albuterol sulfate (units (unknown) date) [Ventolin HFA] 90 unknown) MCG/PUFF HFA aerosol inhaler (unknown) (no (unknown) (unknown) cefazolin [From (units (unknown) date) Ancef] Allergy unknown) Hives Verified 12/22/21 13:21 (unknown) (no (unknown) (unknown) citalopram 20 mg (units (unknown) date) tablet (Celexa) 40 unknown) mg PO QDAY ##60 03/16/11 (unknown) (no (unknown) (unknown) citalopram (units (unk nown) date) [Celexa] 20 MG unknown) tablet (unknown) (no (unknown) (unknown) codeine Allergy (units (unknown) date) Rash Verified unknown) 12/22/21 13:27 (unknown) (no (unknown) (unknown) fluticasone (units (un known) date) propionate 110 1 unknown) puff INH BIDRT ##1 03/02/11 (unknown) (no (unknown) (unknown) fluticasone (units (un known) date) propionate unknown) [Flovent HFA] 12 GM HFA aerosol inhaler (unknown) (no (unknown) (unknown) hydrocodone (units (un known) date) AdvReac Vomiting unknown) Verified 12/22/21 13:27 (unknown) (no (unknown) (unknown) mcg/actuation HFA (units (unknown) date) aerosol inhaler unknown) (unknown) (no (unknown) (unknown) methamphetamine (units (unknown) date) Allergy Verified unknown) 12/22/21 13:27 (unknown) (no (unknown) (unknown) morphine Allergy (units (unknown) date) Hallucinati unknown) Verified 12/22/21 13:27 (unknown) (no (unknown) (unknown) ng (units (unkno wn) date) unknown) (unknown) (no (unknown) (unknown) shrimp Allergy (units (unknown) date) Hives Verified unknown) 12/22/21 13:27 (unknown) (no (unknown) (unknown) tobacco type: (units ( unknown) date) cigarettes unknown) (unknown) (no (unknown) (unknown) [facility] (units (unknown) date) Verified 12/22/21 unknown) 13:27 Result panel 15 (unknown) (no (unknown) (unknown) (no value) (units (unk nown) date) unknown) (unknown) (no (unknown) (unknown) <Electronically (units (unknown) date) signed by Sudheer Mendes D.O.> (unknown) (no (unknown) (unknown) (Flovent HFA) (units ( unknown) date) unknown) (unknown) (no (unknown) (unknown) 0.09 mg IH Q4H (units (unknown) date) Qty: 1 3RF unknown) (unknown) (no (unknown) (unknown) 12/22/21 (units (unkno wn) date) unknown) (unknown) (no (unknown) (unknown) 12/23/21 0329 (units ( unknown) date) unknown) (unknown) (no (unknown) (unknown) 1 puff INH BIDRT (units (unknown) date) Qty: 1 3RF unknown) (unknown) (no (unknown) (unknown) 1 spray (units (unkno wn) date) Intranasal QDAY unknown) Qty: 1 3RF (unknown) (no (unknown) (unknown) 100 mg PO BID 10 (units (unknown) date) Days Qty: 20 0RF unknown) (unknown) (no (unknown) (unknown) 1164 (units (unkno wn) date) unknown) (unknown) (no (unknown) (unknown) 21:10 (units (unkno wn) date) unknown) (unknown) (no (unknown) (unknown) 40 mg PO QDAY (units ( unknown) date) Qty: 60 1RF unknown) (unknown) (no (unknown) (unknown) Activity (units (unkno wn) date) Restrictions/Addit unknown) ional Instructions: (unknown) (no (unknown) (unknown) Age/Sex: 31 / M (units (unknown) date) unknown) (unknown) (no (unknown) (unknown) Allergies (units (unkn own) date) unknown) (unknown) (no (unknown) (unknown) Allergy/AdvReac (units (unknown) date) Type Severity unknown) Reaction Status Date / Time (unknown) (no (unknown) (unknown) Blood Pressure (units (unknown) date) 118/66 09 unknown) 19:07 (unknown) (no (unknown) (unknown) Blood Pressure (units (unknown) date) 127/78 unknown) (unknown) (no (unknown) (unknown) Cardio (units (unkno wn) date) unknown) (unknown) (no (unknown) (unknown) Cardiovascular (units (unknown) date) unknown) (unknown) (no (unknown) (unknown) Cardiovascular: (units (unknown) date) Reports system unknown) reviewed and no additional complaints, except as (unknown) (no (unknown) (unknown) Cellulitis (units (unk nown) date) unknown) (unknown) (no (unknown) (unknown) Chief Complaint: (units (unknown) date) Recheck/Abnormal unknown) Lab/Rx (unknown) (no (unknown) (unknown) Clinical (units (unkno wn) date) Impression: unknown) (unknown) (no (unknown) (unknown) Const (units (unkno wn) date) unknown) (unknown) (no (unknown) (unknown) Constitutional (units (unknown) date) unknown) (unknown) (no (unknown) (unknown) Constitutional: (units (unknown) date) Reports system unknown) reviewed and no additional complaints, except as (unknown) (no (unknown) (unknown) Course (units (unkno wn) date) unknown) (unknown) (no (unknown) (unknown) : 1990 (units (unknown) date) Acct:[id number] unknown) (unknown) (no (unknown) (unknown) Date of Service: (units (unknown) date) 12/22/21 unknown) (unknown) (no (unknown) (unknown) Departure (units (unkn own) date) unknown) (unknown) (no (unknown) (unknown) Discharge Plan (units (unknown) date) unknown) (unknown) (no (unknown) (unknown) Discontinued (units (u nknown) date) Medications unknown) (unknown) (no (unknown) (unknown) Documented By: KP (units (unknown) date) unknown) (unknown) (no (unknown) (unknown) Doxycycline (units (un known) date) Hyclate unknown) (Doxycycline Hyclate 100 Mg Tablet) 100 mg PO NOW ONE (unknown) (no (unknown) (unknown) ER Physician: (units ( unknown) date) Sudheer Mendes unknown) D.O. (unknown) (no (unknown) (unknown) Effort + (units (unkno wn) date) Inspection: normal unknown) respiratory effort (unknown) (no (unknown) (unknown) Emergency Report (units (unknown) date) unknown) (unknown) (no (unknown) (unknown) Exam (units (unkno wn) date) unknown) (unknown) (no (unknown) (unknown) Fluticasone (units (un known) date) Propionate unknown) (FLONASE) 1 spray intranasal QDAY ##1 03/02/11 (unknown) (no (unknown) (unknown) Fluticasone (units (un known) date) Propionate unknown) (FLONASE) (unknown) (no (unknown) (unknown) General (units (unkno wn) date) unknown) (unknown) (no (unknown) (unknown) General: (units (unkno wn) date) disheveled unknown) (unknown) (no (unknown) (unknown) General: patient (units (unknown) date) alert, patient unknown) awake and moves all extremities (unknown) (no (unknown) (unknown) HENMT (units (unkno wn) date) unknown) (unknown) (no (unknown) (unknown) HPI - (units (unkno wn) date) Recheck/Abnormal unknown) Lab/Rx (unknown) (no (unknown) (unknown) HPI narrative: (units (unknown) date) unknown) (unknown) (no (unknown) (unknown) Head: normal to (units (unknown) date) inspection and unknown) normocephalic (unknown) (no (unknown) (unknown) History of (units (unk nown) date) Present Illness unknown) (unknown) (no (unknown) (unknown) Initial Vital (units ( unknown) date) Signs unknown) (unknown) (no (unknown) (unknown) Initial Vital (units ( unknown) date) Signs: unknown) (unknown) (no (unknown) (unknown) Instructions: DI (units (unknown) date) for Cellulitis -- unknown) Adult (unknown) (no (unknown) (unknown) Integumentary/[place]re[place] (units (unknown) date) asts unknown) (unknown) (no (unknown) (unknown) [facility] (units (unknown) date) [address] unknown) [place] [address] (unknown) (no (unknown) (unknown) It is important (units (unknown) date) that you start unknown) taking the antibiotics as directed. It was (unknown) (no (unknown) (unknown) Last Admin: (units (un known) date) 12/22/21 20:56 unknown) Dose: 100 mg (unknown) (no (unknown) (unknown) MDM - (units (unkno wn) date) Recheck/Abnormal unknown) Lab/Rx (unknown) (no (unknown) (unknown) MDM Narrative (units ( unknown) date) unknown) (unknown) (no (unknown) (unknown) Medical decision (units (unknown) date) making narrative: unknown) (unknown) (no (unknown) (unknown) Medication (units (unk nown) date) Instructions unknown) Recorded (unknown) (no (unknown) (unknown) Mode of arrival: (units (unknown) date) Ambulatory unknown) (unknown) (no (unknown) (unknown) Musculoskeletal (units (unknown) date) unknown) (unknown) (no (unknown) (unknown) Musculoskeletal: (units (unknown) date) Reports system unknown) reviewed and no additional complaints, except as (unknown) (no (unknown) (unknown) Neuro (units (unkno wn) date) unknown) (unknown) (no (unknown) (unknown) Neurologic (units (unk nown) date) unknown) (unknown) (no (unknown) (unknown) Neurologic: (units (un known) date) Reports system unknown) reviewed and no additional complaints, except as (unknown) (no (unknown) (unknown) New (units (unkno wn) date) unknown) (unknown) (no (unknown) (unknown) No Action (units (unkn own) date) unknown) (unknown) (no (unknown) (unknown) No radiologic (units (u nknown) date) studies nor labs unknown) required during this visit as they were performed (unknown) (no (unknown) (unknown) Ordered: (units (unkno wn) date) unknown) (unknown) (no (unknown) (unknown) Orders (units (unkno wn) date) unknown) (unknown) (no (unknown) (unknown) Other: (units (unkno wn) date) unknown) (unknown) (no (unknown) (unknown) Oxygen Delivery (units (unknown) date) Method 12/22/21 unknown) 19:07 (unknown) (no (unknown) (unknown) Oxygen Delivery (units (unknown) date) Method Room Air unknown) (unknown) (no (unknown) (unknown) Patient (units (unkno wn) date) Disposition: Home unknown) (unknown) (no (unknown) (unknown) Patient History (units (unknown) date) unknown) (unknown) (no (unknown) (unknown) Patient has mild (units (unknown) date) swelling of the unknown) left foot with some areas of crusting. Very (unknown) (no (unknown) (unknown) Patient is a (units (u nknown) date) 31-year-old male unknown) who was seen in the emergency department earlier (unknown) (no (unknown) (unknown) Patient: (units (unkno wn) date) Carissa Murdock MR#: unknown) [id number] (unknown) (no (unknown) (unknown) Prescriptions: (units (unknown) date) unknown) (unknown) (no (unknown) (unknown) Previous Rx's (units ( unknown) date) unknown) (unknown) (no (unknown) (unknown) Pulse Oximetry 98 (units (unknown) date) 12/22/21 19:07 unknown) (unknown) (no (unknown) (unknown) Pulse Oximetry 99 (units (unknown) date) unknown) (unknown) (no (unknown) (unknown) Pulse Rate 86 (units ( unknown) date) unknown) (unknown) (no (unknown) (unknown) Pulse Rate 90 (units ( unknown) date) 12/22/21 19:07 unknown) (unknown) (no (unknown) (unknown) Pulses: dorsalis (units (unknown) date) pedis present on unknown) the left (unknown) (no (unknown) (unknown) Referrals: (units (unk nown) date) unknown) (unknown) (no (unknown) (unknown) Related Data (units (u nknown) date) unknown) (unknown) (no (unknown) (unknown) Resp (units (unkno wn) date) unknown) (unknown) (no (unknown) (unknown) Respiratory Rate (units (unknown) date) 19 unknown) (unknown) (no (unknown) (unknown) Respiratory Rate (units (unknown) date) 20 12/22/21 19:07 unknown) (unknown) (no (unknown) (unknown) Return to the (units ( unknown) date) emergency unknown) department for any new or worsening symptoms. (unknown) (no (unknown) (unknown) Review of Systems (units (unknown) date) unknown) (unknown) (no (unknown) (unknown) Signed By: (units (unk nown) date) unknown) (unknown) (no (unknown) (unknown) Skin (units (unkno wn) date) unknown) (unknown) (no (unknown) (unknown) Skin/Breast: (units (u nknown) date) Reports system unknown) reviewed and no additional complaints, except as (unknown) (no (unknown) (unknown) Nola Skelton, (units (unknown) date) [Physician] unknown) (unknown) (no (unknown) (unknown) Smoking Status: (units (unknown) date) Current every day unknown) smoker (unknown) (no (unknown) (unknown) Social History (units (unknown) date) (Reviewed 12/23/21 unknown) @ 03:27 by Sudheer Mendes DO) (unknown) (no (unknown) (unknown) Source: patient (units (unknown) date) unknown) (unknown) (no (unknown) (unknown) Stated Complaint: (units (unknown) date) INFECTION OF LEFT unknown) FOOT (unknown) (no (unknown) (unknown) Stop: 12/22/21 (units (unknown) date) 20:51 unknown) (unknown) (no (unknown) (unknown) Substance Use (units ( unknown) date) Type: opiates unknown) (unknown) (no (unknown) (unknown) Temperature 98.5 (units (unknown) date) F 12/22/21 19:07 unknown) (unknown) (no (unknown) (unknown) Time Seen by (units (u nknown) date) Provider: 12/22/21 unknown) 20:47 (unknown) (no (unknown) (unknown) Wednesday12/23/21 (units (unknown) date) in the morning. unknown) Please take it as directed. Also contact the (unknown) (no (unknown) (unknown) Visit Report (units (u nknown) date) Forms: Patient unknown) Portal/API (unknown) (no (unknown) (unknown) Vital Signs - 8 (units (unknown) date) hr unknown) (unknown) (no (unknown) (unknown) Vital Signs (units (un known) date) unknown) (unknown) (no (unknown) (unknown) Vital signs: (units (u nknown) date) unknown) (unknown) (no (unknown) (unknown) aerosol inhaler (units (unknown) date) (Ventolin HFA) unknown) (unknown) (no (unknown) (unknown) agreement. (units (unk nown) date) unknown) (unknown) (no (unknown) (unknown) albuterol sulfate (units (unknown) date) 90 mcg/actuation unknown) 0.09 mg IH Q4H ##1 08/24/11 (unknown) (no (unknown) (unknown) albuterol sulfate (units (unknown) date) [Ventolin HFA] 90 unknown) MCG/PUFF HFA aerosol inhaler (unknown) (no (unknown) (unknown) cefazolin [From (units (unknown) date) Ancef] Allergy unknown) Hives Verified 12/22/21 13:21 (unknown) (no (unknown) (unknown) citalopram 20 mg (units (unknown) date) tablet (Celexa) 40 unknown) mg PO QDAY ##60 03/16/11 (unknown) (no (unknown) (unknown) citalopram (units (unk nown) date) [Celexa] 20 MG unknown) tablet (unknown) (no (unknown) (unknown) codeine Allergy (units (unknown) date) Rash Verified unknown) 12/22/21 13:27 (unknown) (no (unknown) (unknown) discussion about (units (unknown) date) the plan and he unknown) was not given any antibiotics. He returns to (unknown) (no (unknown) (unknown) discussion with (units (unknown) date) the patient he did unknown) elope from that visit. There was no (unknown) (no (unknown) (unknown) documented (units (unk nown) date) unknown) (unknown) (no (unknown) (unknown) doxycycline (units (un known) date) hyclate 100 mg unknown) tablet 100 mg PO BID 10 days #20 tabs 12/22/21 (unknown) (no (unknown) (unknown) doxycycline (units (un known) date) hyclate 100 mg unknown) tablet (unknown) (no (unknown) (unknown) earlier in the (units (unknown) date) day. Patient was unknown) given a dose of doxycycline here in the ER. He (unknown) (no (unknown) (unknown) electronically (units (unknown) date) transmitted to unknown) [facility] here in [place]. Your next dose will be (unknown) (no (unknown) (unknown) fluticasone (units (un known) date) propionate 110 1 unknown) puff INH BIDRT ##1 03/02/11 (unknown) (no (unknown) (unknown) fluticasone (units (un known) date) propionate unknown) [Flovent HFA] 12 GM HFA aerosol inhaler (unknown) (no (unknown) (unknown) his choice. He (units (unknown) date) was instructed unknown) that he needed to roller picker this medication and (unknown) (no (unknown) (unknown) hydrocodone (units (un known) date) AdvReac Vomiting unknown) Verified 12/22/21 13:27 (unknown) (no (unknown) (unknown) infection. Please (units (unknown) date) see the note from unknown) earlier today for complete synopsis of (unknown) (no (unknown) (unknown) mcg/actuation HFA (units (unknown) date) aerosol inhaler unknown) (unknown) (no (unknown) (unknown) methamphetamine (units (unknown) date) Allergy Verified unknown) 12/22/21 13:27 (unknown) (no (unknown) (unknown) mild erythema. No (units (unknown) date) ulcerations. unknown) (unknown) (no (unknown) (unknown) morphine Allergy (units (unknown) date) Hallucinati unknown) Verified 12/22/21 13:27 (unknown) (no (unknown) (unknown) ng (units (unkno wn) date) unknown) (unknown) (no (unknown) (unknown) no changes in his (units (unknown) date) health since he unknown) was seen earlier today. (unknown) (no (unknown) (unknown) orthopedic (units (unk nown) date) doctors at the unknown) number provided below is you do need follow-up. (unknown) (no (unknown) (unknown) orthopedics. He (units (unknown) date) expressed unknown) understanding that he needed to follow-up with (unknown) (no (unknown) (unknown) orthopedics. He (units (unknown) date) was given return unknown) precautions. He expressed understanding and (unknown) (no (unknown) (unknown) patient on (units (unk nown) date) antibiotics and unknown) have him follow-up as an outpatient. Prior to this (unknown) (no (unknown) (unknown) provider at that (units (unknown) date) time with unknown) Orthopedics and the decision was made to start the (unknown) (no (unknown) (unknown) show any signs of (units (unknown) date) osteomyelitis. A unknown) discussion was had with the emergency (unknown) (no (unknown) (unknown) shrimp Allergy (units (unknown) date) Hives Verified unknown) 12/22/21 13:27 (unknown) (no (unknown) (unknown) start taking it (units (unknown) date) as directed. He unknown) was also given follow-up instructions for (unknown) (no (unknown) (unknown) the emergency (units ( unknown) date) department for unknown) continued evaluation and treatment. There has been (unknown) (no (unknown) (unknown) this. Was an MRI (units (unknown) date) that was reviewed unknown) is his visit earlier today which did not (unknown) (no (unknown) (unknown) tobacco type: (units ( unknown) date) cigarettes unknown) (unknown) (no (unknown) (unknown) today. Has had a (units (unknown) date) fairly extensive unknown) workup recently for concerns of a left foot (unknown) (no (unknown) (unknown) walnut Allergy (units (unknown) date) Verified 12/22/21 unknown) 13:27 (unknown) (no (unknown) (unknown) was sent home (units ( unknown) date) with a unknown) prescription for doxycycline was sent to the pharmacy of Result panel 16 (unknown) (no date) (unknown) (unknown) (no value) (units (un known) unknown) (unknown) (no date) (unknown) (unknown) NO GROWTH (units (unk nown) AFTER 24 unknown) HOURS Result panel 17 (unknown) (no date) (unknown) (unknown) (no value) (units (un known) unknown) (unknown) (no date) (unknown) (unknown) NO GROWTH (units (unk nown) AFTER 48 unknown) HOURS Result panel 18 (unknown) (no date) (unknown) (unknown) (no value) (units (un known) unknown) (unknown) (no date) (unknown) (unknown) NO GROWTH (units (unk nown) AFTER 72 unknown) HOURS Result panel 19 (unknown) (no date) (unknown) (unknown) (no value) (units (un known) unknown) (unknown) (no date) (unknown) (unknown) NO GROWTH (units (unk nown) AFTER 4 DAYS unknown) Result panel 20 (unknown) (no date) (unknown) (unknown) (no value) (units (un known) unknown) (unknown) (no date) (unknown) (unknown) NO GROWTH (units (unk nown) AFTER 4 DAYS unknown) Social History No information. Vital Signs No information.
[2021-12-26 19:32] LABS: BASOPHILS # (AUTO) 0.1 10^3/uL (0.0-0.1); BASOPHILS % (AUTO) 0.6 %; EOSINOPHILS # (AUTO) 0.5 10^3/uL (0.0-0.7); EOSINOPHILS % (AUTO) 4.9 %; HCT - HEMATOCRIT 39.4 % (42.0-52.0); HGB - HEMOGLOBIN 13.3 g/dL (14.0-18.0); LYMPHOCYTES # (AUTO) 2.6 10^3/uL (1.5-3.5); LYMPHOCYTES % (AUTO) 27.3 %; MEAN CORPUSCULAR HEMOGLOBIN 32.6 pg (27.0-31.0); MEAN CORPUSCULAR HGB CONC 33.8 g/dL (32.0-36.0); MEAN CORPUSCULAR VOLUME 96.6 fL (80.0-94.0); MEAN PLATELET VOLUME 9.1 fL (7.4-11.4); MONOCYTES # (AUTO) 0.7 10^3/uL (0.0-1.0); MONOCYTES % (AUTO) 7.1 %; NEUTROPHILS # (AUTO) 5.7 10^3/uL (1.5-6.6); NEUTROPHILS % (AUTO) 59.4 %; PLT - PLATELET COUNT 292 10^3/uL (130-450); RED BLOOD COUNT 4.08 10^6/uL (4.70-6.10); RED CELL DISTRIBUTION WIDTH 12.8 % (12.0-15.0); WHITE BLOOD COUNT 9.6 x10^3/uL (4.8-10.8)
[2021-12-26 19:44] LABS: ALBUMIN 3.7 g/dL (3.2-5.5); ALBUMIN/GLOBULIN RATIO 1.2 (1.0-2.2); BILIRUBIN,TOTAL 0.4 mg/dL (0.2-1.0); CALCIUM 9.1 mg/dL (8.5-10.3); CREATININE 0.7 mg/dL (0.6-1.2); POTASSIUM 4.3 mmol/L (3.5-5.0); TOTAL PROTEIN 6.9 g/dL (6.7-8.2)
--- NOTE | 2021-12-26 19:54 | CT Report ---
PROCEDURE: HEAD WO INDICATIONS: possible new seizure TECHNIQUE: Noncontrast 4.5 mm thick angled axial sections acquired from the foramen magnum to the vertex. For r adiation dose reduction, the following was used: automated exposure control, adjustment of mA and/or kV according to patient size. COMPARISON: None. FINDINGS: Image quality: Excellent. CSF spaces: Basal cisterns are patent. No extra-axial fluid collections. Ventricles are normal in size and shape. Brain: No midline shift. No intracranial masses or hemorrhage. Mercer-white matter interface is norm al. Skull and face: Calvarium and visualized facial bones are intact, without suspicious lesions. Sinuses: Mild left maxillary sinus mucosal thickening. Visualized sinuses and mastoids are otherwise clear. IMPRESSION: No acute intracranial abnormality. Reviewed by: Sissy Zhao MD on 12/26/2021 7:53 PM PDT Approved by: Sissy Zhao MD on 12/26/2021 7:53 PM PDT Station ID: [id number]
[2021-12-26 20:12] VITALS: BP 132/78
== END 2021-12-26 20:19 | disposition home or self-care (01) ==
LOC: EDUNIT# → ED 18:53
DX: R56.9 Unspecified convulsions (principal); F11.10 Opioid abuse, uncomplicated
CPT/HCPCS: 36415; 80053; 85025; 93005; 99283; 99284